=== PATIENT | male | born 1960 | race Caucasian/White ===

== ENCOUNTER 2017-07-21 14:21 | Emergency (ER) | payer MEDICARE, MEDICAID ==
[2014-01-29 08:22] VITALS: Ht 175.3 cm; Wt 102.1 kg
[~2017-07-21] VITALS: Ht 175.3 cm; Wt 102.1 kg
[~2017-07-21 14:21] MED LIST: ACET-1748 PO; ALPR-1 PO; ALPR-699 PO; ANDROGELPT; ANTI HTN; AUG500 PO; BENZ1 PO; CEPH500C24; CHLO100T2 PO; CHLO50TA PO; CHOL500045 PO; CIPR-344; CLON-298 PO; CLON-303 *; DAR100 PO; DES100PT PO; DESV50TA9 PO; FAMO40TA62 PO; FENO145T PO; FLUT16SP20 NS; GEN20I IM; HYDR-4228 PO; HYDR-6016 PO; IBUP800T37 PO; IMMU10VI4 SQ; IMMU4VIA SQ; KETO5DRO50 OP; LEVO-85 PO; LEVO50TA86 PO; LISI-347 PO; LISI-351 PO; LOR5/325 PO; LURA60TA PO; MECO10002 SL; MEPE50TA29 PO; MULT-1335 PO; MULT-859 PO; NORT50CA40 PO; NORT75CA PO; OLAN10TA23 PO; OMEG-97 PO; OMEG500C7 PO; ONDA4TAB PO; QUET400T11 PO; TEST2.5G TD; TOBROD OP; VALS1TAB96 PO; ZOL5 PO
[2017-07-21] MEDS ORDERED: MELA10TA2 PO (15:14)
[2017-07-21] MEDS ORDERED: NOR25 PO (15:14)
[2017-07-21] MEDS ORDERED: ICOS1CAP PO (15:14)
[2017-07-21] MEDS ORDERED: CHLO50TA PO (15:14)
[2017-07-21 15:15] LABS: PLATELET COUNT, AUTOMATED 388 K/uL (150-450)
--- NOTE | 2017-07-21 15:30 | ER Report ---
History and Physical Time Seen By MD: 14:40 Hx. of Stated Complaint: ANXIETY - DENIES SI HPI/ROS CHIEF COMPLAINT: Anxiety HISTORY OF PRESENT ILLNESS: Patient is a 56-year-old male who presents the ED with complaint of anxiety that has worsened over the past 3 weeks. He states that he was seen 1-2 weeks ago in the emergency room and was considered alprazolam. He states he did take some of this but has not been taking much of it. He states that it did help some. He states that he has been diagnosed with anxiety and dysthymia in the past. He does see Shantell Gavin for his psychiatrist. He states he has not seen her for the past 2 months. He states he did make an appointment with her. He states that he has been unable to get hold of her in the past week and decided to text Dr. Heart, psychiatrist, who was his previous psychiatrist and advised him to come to the emergency room for evaluation. He denies any suicidal ideation or homicidal ideation. He denies any new stressors. He states that the short days have been bothering him. He states he just worries about everything currently. REVIEW OF SYSTEMS: Constitutional: No fever, no chills. Eyes: No discharge. ENT: No sore throat. Cardiovascular: No chest pain, no palpitations. Respiratory: No cough, no shortness of breath. Gastrointestinal: No abdominal pain, no vomiting. Genitourinary: No hematuria. Musculoskeletal: No back pain. Skin: No rashes. Neurological: No headache. Allergies: Coded Allergies: codeine (Verified Allergy, Mild, 07/21/17) diazepam (Verified Allergy, Mild, 07/21/17) morphine (Verified Allergy, Mild, ANAPHALAXIS, 07/21/17) tramadol (Verified Allergy, Mild, 07/21/17) ciprofloxacin (Verified Allergy, Unknown, 07/21/17) clarithromycin (Verified Allergy, Unknown, 07/21/17) prednisone (Verified Allergy, Unknown, DELUSIONS, 07/21/17) "STERIOD INDUCED TY" Home Meds Active Scripts Alprazolam 0.25 Mg Tab (XANAX 0.25 MG TAB) 0.25 Mg Tablet, 0.5 TAB PO TID, #6 TAB 0 Refills Prov:ASIA JAEGER MD 07/15/17 Reported Medications Nortriptyline Hcl (NORTRIPTYLINE HCL) 25 Mg Cap, 100 MG PO HS, CAP 07/21/17 Icosapent Ethyl (VASCEPA) 1 Gm Capsule, 2 GM PO BID, CAPSULE 07/21/17 Melatonin (MELATONIN) 10 Mg Tablet, 10 MG PO QHS 07/21/17 Chlorpromazine Hcl (CHLORPROMAZINE HCL) 50 Mg Tablet, 50 MG PO QHS 07/21/17 Fenofibrate Nanocrystallized (FENOFIBRATE) 145 Mg Tablet, 145 MG PO QDAY 04/04/17 Mecobalamin (B-12) 1,000 Mcg Tab.rapdis, 1 TAB SL QDAY 12/25/15 Quetiapine Fumarate (SEROQUEL) 400 Mg Tablet, 1000 MG PO QHS 09/06/14 Immune Globulin,Gamma(Igg) (HIZENTRA) 4 Gm/20 Ml Vial, 50 GM SQ QWEEK, VIAL 09/06/14 Lisinopril/Hydrochlorothiazide (LISINOPRIL-HCTZ 10-12.5 MG TAB) 1 Each Tablet, 1 EACH PO QDAY 09/06/14 Cholecalciferol (Vitamin D3) (VITAMIN D) 5,000 Unit Tablet, 5000 UNIT PO QDAY 01/26/14 Levothyroxine Sodium (LEVOTHYROXINE SODIUM) 50 Mcg Tablet, 50 MCG PO QDAY 12/15/13 Discontinued Reported Medications [place]-3 Fatty Acids (FISH OIL) 500 Mg Capsule, 2 TAB PO BID, CAPSULE 12/25/15 Nortriptyline Hcl (NORTRIPTYLINE HCL) 75 Mg Capsule, 100 MG PO QAM, CAPSULE 12/25/15 TESTOSTERONE 1% Topical Gel (ANDROGEL 1% Topical Gel) 5 Gm Gel, 10 G DAILY 09/06/14 Reviewed Nurses Notes: Yes Old Medical Records Reviewed: Yes Hx Smoking: No Smoking Status: Never Smoker Exposure to Second Hand Smoke?: No Hx Substance Use Disorder: Yes (MARIJUANA) Hx Alcohol Use: No Constitutional Vital Sign - Last 24 Hours 07/21/17 15:00 Temp 98.2 Pulse 100 Resp 16 B/P (MAP) 122/78 Pulse Ox 96 O2 Delivery Room Air Physical Exam General Appearance: The patient is alert, has no immediate need for airway protection and no signs of toxicity. She appears to be no acute distress. Eyes: Pupils equal and round no pallor or injection. ENT, Mouth: Mucous membranes are moist. Respiratory: There are no retractions, lungs are clear to auscultation. Cardiovascular: Regular rate and rhythm. Gastrointestinal: Abdomen is soft and non tender, no masses, bowel sounds normal. Skin: Warm and dry, no rashes. Musculoskeletal: Neck is supple non tender. Extremities are nontender, nonswollen and have full range of motion. Medical Decision Making Data Points Result Diagram: 07/21/17 1502 07/21/17 1502 Laboratory Hematology Test 07/21/17 14:59 07/21/17 15:02 Urine Color Yellow Urine Clarity Clear Urine pH 6.0 pH (4.8-9.5) Urine Specific [place] 1.013 Urine Protein Negative mg/dL (NEGATIVE) Urine Glucose (UA) Negative mg/dL (NEGATIVE) Urine Ketones Negative mg/dL (NEGATIVE) Urine Blood Negative (NEGATIVE) Urine Nitrite Negative (NEGATIVE) Urine Bilirubin Negative (NEGATIVE) Urine Urobilinogen Negative mg/dL (0.2-1.9) Urine Leukocyte Esterase Negative (NEGATIVE) Urine RBC 1 /HPF (0-2/HPF) Urine WBC 1 /HPF (0-5/HPF) Urine Squamous Epithelial Cells Many /LPF (</=FEW) Urine Bacteria Negative /HPF (NONE-FEW) Urine Mucus None /HPF (NONE-FEW) Urine Opiates Screen Negative Urine Barbiturates Screen Negative Ur Tricyclic Antidepressants Screen Positive Urine Phencyclidine Screen Negative Urine Amphetamines Screen Negative Urine Benzodiazepines Screen Negative Urine Cocaine Screen Negative Urine Cannabinoids Screen Positive Red Blood Count 5.49 M/uL (4.00-5.60) Mean Corpuscular Volume 86.2 fL (80.0-96.0) Mean Corpuscular Hemoglobin 30.1 pg (26.0-33.0) Mean Corpuscular Hemoglobin Concent 34.9 g/dL (32.0-36.0) Red Cell Distribution Width 12.8 % (11.5-14.5) Mean Platelet Volume 6.7 fL (7.2-11.1) Neutrophils (%) (Auto) 73.0 % (39.4-72.5) Lymphocytes (%) (Auto) 19.1 % (17.6-49.6) Monocytes (%) (Auto) 6.4 % (4.1-12.4) Eosinophils (%) (Auto) 0.4 % (0.4-6.7) Basophils (%) (Auto) 1.1 % (0.3-1.4) Nucleated RBC Relative Count (auto) 0.0 /100WBC Neutrophils # (Auto) 5.4 K/uL (2.0-7.4) Lymphocytes # (Auto) 1.4 K/uL (1.3-3.6) Monocytes # (Auto) 0.5 K/uL (0.3-1.0) Eosinophils # (Auto) 0.0 K/uL (0.0-0.5) Basophils # (Auto) 0.1 K/uL (0.0-0.1) Nucleated RBC Absolute Count (auto) 0.00 K/uL Sodium Level 132 mmol/L (137-145) Potassium Level 3.6 mmol/L (3.5-5.0) Chloride Level 94 mmol/L (98-107) Carbon Dioxide Level 27 mmol/L (22-30) Blood Urea Nitrogen 18 mg/dl (9-21) Creatinine 1.30 mg/dl (0.66-1.25) Glomerular Filtration Rate Calc 56.7 Random Glucose 102 mg/dl (75-110) Calcium Level 9.9 mg/dl (8.4-10.2) Magnesium Level 2.1 mg/dl (1.7-2.2) Total Bilirubin 0.7 mg/dl (0.2-1.3) Aspartate Amino Transf (AST/SGOT) 33 U/L (0-35) Alanine Aminotransferase (ALT/SGPT) 47 U/L (0-56) Alkaline Phosphatase 58 U/L (0-126) Total Protein 8.6 gm/dl (6.3-8.2) Albumin 4.6 g/dl (3.5-5.0) Salicylates Level < 10 mg/L Salicylate Last Dose Date unknown Acetaminophen Level < 10 ug/ml Serum Alcohol < 10 mg/dl Chemistry Test 07/21/17 14:59 07/21/17 15:02 Urine Color Yellow Urine Clarity Clear Urine pH 6.0 pH (4.8-9.5) Urine Specific [place] 1.013 Urine Protein Negative mg/dL (NEGATIVE) Urine Glucose (UA) Negative mg/dL (NEGATIVE) Urine Ketones Negative mg/dL (NEGATIVE) Urine Blood Negative (NEGATIVE) Urine Nitrite Negative (NEGATIVE) Urine Bilirubin Negative (NEGATIVE) Urine Urobilinogen Negative mg/dL (0.2-1.9) Urine Leukocyte Esterase Negative (NEGATIVE) Urine RBC 1 /HPF (0-2/HPF) Urine WBC 1 /HPF (0-5/HPF) Urine Squamous Epithelial Cells Many /LPF (</=FEW) Urine Bacteria Negative /HPF (NONE-FEW) Urine Mucus None /HPF (NONE-FEW) Urine Opiates Screen Negative Urine Barbiturates Screen Negative Ur Tricyclic Antidepressants Screen Positive Urine Phencyclidine Screen Negative Urine Amphetamines Screen Negative Urine Benzodiazepines Screen Negative Urine Cocaine Screen Negative Urine Cannabinoids Screen Positive White Blood Count 7.3 k/uL (4.5-11.0) Red Blood Count 5.49 M/uL (4.00-5.60) Hemoglobin 16.5 g/dL (14.0-18.0) Hematocrit 47.3 % (42.0-52.0) Mean Corpuscular Volume 86.2 fL (80.0-96.0) Mean Corpuscular Hemoglobin 30.1 pg (26.0-33.0) Mean Corpuscular Hemoglobin Concent 34.9 g/dL (32.0-36.0) Red Cell Distribution Width 12.8 % (11.5-14.5) Platelet Count 388 K/uL (150-450) Mean Platelet Volume 6.7 fL (7.2-11.1) Neutrophils (%) (Auto) 73.0 % (39.4-72.5) Lymphocytes (%) (Auto) 19.1 % (17.6-49.6) Monocytes (%) (Auto) 6.4 % (4.1-12.4) Eosinophils (%) (Auto) 0.4 % (0.4-6.7) Basophils (%) (Auto) 1.1 % (0.3-1.4) Nucleated RBC Relative Count (auto) 0.0 /100WBC Neutrophils # (Auto) 5.4 K/uL (2.0-7.4) Lymphocytes # (Auto) 1.4 K/uL (1.3-3.6) Monocytes # (Auto) 0.5 K/uL (0.3-1.0) Eosinophils # (Auto) 0.0 K/uL (0.0-0.5) Basophils # (Auto) 0.1 K/uL (0.0-0.1) Nucleated RBC Absolute Count (auto) 0.00 K/uL Glomerular Filtration Rate Calc 56.7 Calcium Level 9.9 mg/dl (8.4-10.2) Magnesium Level 2.1 mg/dl (1.7-2.2) Total Bilirubin 0.7 mg/dl (0.2-1.3) Aspartate Amino Transf (AST/SGOT) 33 U/L (0-35) Alanine Aminotransferase (ALT/SGPT) 47 U/L (0-56) Alkaline Phosphatase 58 U/L (0-126) Total Protein 8.6 gm/dl (6.3-8.2) Albumin 4.6 g/dl (3.5-5.0) Salicylates Level < 10 mg/L Salicylate Last Dose Date unknown Acetaminophen Level < 10 ug/ml Serum Alcohol < 10 mg/dl Toxicology Test 07/21/17 14:59 07/21/17 15:02 Urine Opiates Screen Negative Urine Barbiturates Screen Negative Ur Tricyclic Antidepressants Screen Positive Urine Phencyclidine Screen Negative Urine Amphetamines Screen Negative Urine Benzodiazepines Screen Negative Urine Cocaine Screen Negative Urine Cannabinoids Screen Positive Salicylates Level < 10 mg/L Salicylate Last Dose Date unknown Acetaminophen Level < 10 ug/ml Serum Alcohol < 10 mg/dl Urinalysis Test 07/21/17 14:59 Urine Color Yellow Urine Clarity Clear Urine pH 6.0 pH (4.8-9.5) Urine Specific [place] 1.013 Urine Protein Negative mg/dL (NEGATIVE) Urine Glucose (UA) Negative mg/dL (NEGATIVE) Urine Ketones Negative mg/dL (NEGATIVE) Urine Blood Negative (NEGATIVE) Urine Nitrite Negative (NEGATIVE) Urine Bilirubin Negative (NEGATIVE) Urine Urobilinogen Negative mg/dL (0.2-1.9) Urine Leukocyte Esterase Negative (NEGATIVE) Urine RBC 1 /HPF (0-2/HPF) Urine WBC 1 /HPF (0-5/HPF) Urine Squamous Epithelial Cells Many /LPF (</=FEW) Urine Bacteria Negative /HPF (NONE-FEW) Urine Mucus None /HPF (NONE-FEW) EKG/Imaging EKG Interpretation 12 lead EKG: Rhythm: Normal sinus rhythm, rate [address] segments: No acute ST changes identified. ED Course/Re-evaluation ED Course Will obtain labs. Behavioral health will come see patient. 07/21/2017 4:02:44 pm -discussed patient with Dr. Heart, psychiatry, who will accept patient under his care. Decision to Disposition Date: Jul 21, 2017 Decision to Disposition Time: 16:03 Depart Departure Latest Vital Signs Vital Signs Date Time Temp Pulse Resp B/P (MAP) Pulse Ox O2 Delivery O2 Flow Rate FiO2 07/21/17 15:00 98.2 100 16 122/78 96 Room Air Impression: Primary Impression: Anxiety Condition: Improved Disposition: XFER TO [facility] MD Consult Note: Dr. Heart, Psychiatry VALETNE BAEZA PA-C Jul 21, 2017 15:30
--- NOTE | 2017-07-21 16:03 | EKG ---
FACILITY: [facility] - [place] PATIENT NAME: AARON POSADAS : [id number] MR: [id number] V: [id number] EXAM DATE: ORDERING PHYSICIAN: VALENTE BAEZA TECHNOLOGIST: MICHEAL Pino Reason : TACHYCARDIA Blood Pressure : / mmHG Vent. Rate : 095 BPM Atrial Rate : 095 BPM P-R Int : 182 ms QRS Dur : 110 ms QT Int : 364 ms P-R-T Axes : 055 -64 048 degrees QTc Int : 457 ms Normal sinus rhythm Left axis deviation Possible biatrial enlargement No ST-T abnormalities When compared with ECG of 24-FEB-2017 09:58, QRS duration has decreased Confirmed by CHANDNI PAYNE ([id number]) on 07/22/2017 1:30:43 AM Referred By: FELISHA Confirmed By:CHANDNI PAYNE
[2017-07-21 16:25] VITALS: BP 132/87
[2017-07-21] MEDS ORDERED: TEST1.25 (16:27)
== END 2017-07-21 16:34 ==
LOC: ER 14:21
DX: F41.9 Anxiety disorder, unspecified (principal); F12.90 Cannabis use, unspecified, uncomplicated
CPT/HCPCS: 36415; 80305; 81001; 83735; 84443; 85025; 93005; 99285; G0480; 80320; 80329; 82040; 82247; 82310; 82374; 82435; 82565; 82947; 84075; 84132; 84155; 84295; 84450; 84460; 84520

== ENCOUNTER 2017-07-21 16:13 | Inpatient (IN) | payer MEDICARE, MEDICAID ==
[2014-01-29 08:22] VITALS: Ht 175.3 cm; Wt 99.8 kg
[~2017-07-21] VITALS: Ht 175.3 cm; Wt 99.8 kg
[~2017-07-21 16:13] MED LIST changes: +ICOS1CAP PO; +MELA10TA2 PO; +NOR25 PO
[2017-07-21] MEDS ORDERED: TEST1.25 (16:27)
[2017-07-21] MEDS ORDERED: PERPHENAZINE 2 MG TAB PO PRN (18:45)
[2017-07-21] MEDS ORDERED: MAG HYD/AL HYD/SIMETH 30ML UDC PO PRN (19:45)
[2017-07-21] MEDS ORDERED: ACETAMINOPHEN 325 MG TAB PO PRN (19:45)
[2017-07-21] MEDS: ICOSAPENT ETHYL 1 GM PO SCH (20:44)
[2017-07-21] MEDS: MELATONIN 3 MG TAB PO SCH (20:45)
[2017-07-21] MEDS: QUEtiapine FUM 100 MG TAB PO SCH (20:45)
[2017-07-21] MEDS: PERPHENAZINE 2 MG TAB PO SCH (20:47)
[2017-07-21 23:19] VITALS: BP 114/73
[2017-07-22] MEDS: PERPHENAZINE 2 MG TAB PO SCH (00:35)
[2017-07-22] MEDS ORDERED: LORazepam 1 MG TAB PO ONE (02:05)
[2017-07-22] MEDS: LEVOTHYROXINE SOD 0.05 MG TAB PO SCH (06:16)
[2017-07-22 08:14] VITALS: BP 125/74
[2017-07-22] MEDS: ICOSAPENT ETHYL 1 GM PO SCH ×2 (08:14→21:06)
[2017-07-22] MEDS: CHOLECALCIFEROL 1000 UNIT TAB PO SCH (08:15)
[2017-07-22] MEDS: NORTRIPTYLINE HCL 25 MG CAP PO SCH (08:15)
[2017-07-22] MEDS: MULTIVITAMINS TAB PO SCH (08:15)
[2017-07-22] MEDS: FENOFIBRATE,MICRON 145 MG TAB PO SCH (08:15)
[2017-07-22] MEDS: LISINOPRIL 10 MG TAB PO SCH (08:15)
[2017-07-22] MEDS: HYDROCHLOROTHIAZIDE 25 MG TAB PO SCH (08:16)
[2017-07-22] MEDS ORDERED: TESTOSTERONE PUMP TP SCH (09:00)
[2017-07-22] MEDS ORDERED: PATIENT'S OWN MED SC SCH (09:55)
[2017-07-22 17:32] VITALS: BP 119/80
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
[2017-07-22] MEDS ORDERED: PATIENT'S OWN MED SCH (21:00)
[2017-07-22] MEDS ORDERED: PERPHENAZINE 2 MG TAB PO SCH (21:00)
[2017-07-22] MEDS: QUEtiapine FUM 100 MG TAB PO SCH (21:05)
[2017-07-22] MEDS: MELATONIN 3 MG TAB PO SCH (21:05)
[2017-07-23] MEDS ORDERED: PERPHENAZINE 2 MG TAB PO SCH
[2017-07-23 00:16] VITALS: BP 123/87
[2017-07-23] MEDS: LEVOTHYROXINE SOD 0.05 MG TAB PO SCH (07:19)
[2017-07-23 08:10] VITALS: BP 117/76
[2017-07-23] MEDS: CHOLECALCIFEROL 1000 UNIT TAB PO SCH (08:56)
[2017-07-23] MEDS: NORTRIPTYLINE HCL 25 MG CAP PO SCH (08:56)
[2017-07-23] MEDS: FENOFIBRATE,MICRON 145 MG TAB PO SCH (08:56)
[2017-07-23] MEDS: MULTIVITAMINS TAB PO SCH (08:56)
[2017-07-23] MEDS: LISINOPRIL 10 MG TAB PO SCH (08:56)
[2017-07-23] MEDS: HYDROCHLOROTHIAZIDE 25 MG TAB PO SCH (08:57)
[2017-07-23] MEDS: ICOSAPENT ETHYL 1 GM PO SCH (09:00)
[2017-07-23] MEDS ORDERED: PATIENT'S OWN MED SC SCH (09:00)
[2017-07-23] MEDS ORDERED: CYANOCOBALAMIN 100 MCG TAB PO ONE (09:00)
[2017-07-23] MEDS ORDERED: MULT-1335 PO (09:51)
[2017-07-23] MEDS ORDERED: QUET400T11 PO (09:51)
[2017-07-23] MEDS ORDERED: PERP8TAB PO (09:53)
--- NOTE | 2017-07-23 13:03 | BHS Discharge Summary ---
[facility] Discharge Summary [id number] Encounter Date: Jul 23, 2017 [id number] Encounter Time: 09:00 Reason-Hosp/Final Diag (DSM-V): (1) Bipolar disorder, manic, moderate Hospital Course & Plan: Pt. was admitted to [facility] voluntarily. Medication changes were made to address his significant insomnia and anxiety: Trilafon 4 mg was started at HS, and chlorpromazine was DC'd, and seroquel was decreased to 800 mg q HS. After one night the trilafon 4 mg helped him some, but not completely, so the next night it was increased to 8mg. With this dose he reported sleeping well, and anxiety was decreased. On day of discharge he was improved and was cautiously optimistic that the trilafon would continue to benefit him. He was advised to talk to Shantell Gavin, his outpatient provider, about possible depakote trial in the future for mood stability if the trilafon does not give satisfactory benefit. (2) Generalized anxiety disorder Hospital Course & Plan: As above. (3) Elevated sed rate Hospital Course & Plan: Pt's sed rate was measured at 37 during an ER visit one week prior to this admission. In addition, pt's creatinine was elevated at 1.3. Our concern is that there may be an autoimmune process like lupus going on which may also partially explain presenting symptoms like wt loss, malaise, anxiety, polydipsia. (Pt's sister apparently has Lupus) CORRINA was drawn but result is still pending at the time of discharge. Pt understands to make appointment with Suad Yu for follow up of CORRINA result. Of note, patient' s TSH, T3, and T4 were all WNL during this hospitalization. (4) Cannabis use disorder, mild, abuse Hospital Course & Plan: Pt participated in psychoeducation regarding negative effects of cannabis and verbalizes commitment to sobriety. Physical Exam Latest Vital Signs Vital Signs 07/23/17 08:10 Temp 96.9 Pulse 92 Resp 18 B/P (MAP) 117/76 (90) Pulse Ox 96 O2 Delivery Room Air Mental Status Exam General Appearance: Casual, Well Groomed, Good Eye Contact, Cooperative, Polite , Good Interaction Speech: Clear, Spontaneous, Normal Rate, Normal Rhythm, Normal Volume, Normal Tone Mood: Euthymic Affect: Full and Appropriate, Calm Thought Process: Organized, Logical, Goal Directed Thought Content: No Suicidal Ideation, No Homicidal Ideation, No Delusions, No Auditory Halllucinations, No Visual Hallucinations, No Thought Broadcasting, No Ideas of Reference, No Obsessions, No Compulsions, No Other Sensorium: Clear Cognition: Alert & Oriented-Person, Alert & Oriented-Place, Alert & Oriented- Time, Ydbrp-[id number]-Dvzugidlo Memory: Immediate, Recent, Remote Intelligence: Above Average Insight Judgment: Good Departure Hematology Test 07/22/17 11:27 07/23/17 07:17 C-Reactive Protein < 0.5 mg/dl (<1.0) Prostate Specific Antigen 3.71 ng/ml (0.0-4.0) Vitamin D 25-Hydroxy 58 ng/ml (30-100) Free Thyroxine 1.19 ng/dl (0.78-2.19) Free Triiodothyronine 3.0 pg/mL (2.4-4.2) Chemistry Test 07/22/17 11:27 07/23/17 07:17 C-Reactive Protein < 0.5 mg/dl (<1.0) Prostate Specific Antigen 3.71 ng/ml (0.0-4.0) Vitamin D 25-Hydroxy 58 ng/ml (30-100) Free Thyroxine 1.19 ng/dl (0.78-2.19) Free Triiodothyronine 3.0 pg/mL (2.4-4.2) Condition: Improved Discharge to: Home Discharge Instructions Home Meds Reported Medications Perphenazine (PERPHENAZINE) 8 Mg Tablet, 8 MG PO QHS 07/23/17 Multivitamin With Minerals (MULTIPLE VITAMIN) 1 Each Tablet, 1 EACH PO DAILY, TAB 07/23/17 Quetiapine Fumarate (SEROQUEL) 400 Mg Tablet, 800 MG PO QHS 07/23/17 TESTOSTERONE 1.62% Topical Gel (ANDROGEL 1.62% Topical Gel) 1.25 Gm Gel.packet 07/21/17 Nortriptyline Hcl (NORTRIPTYLINE HCL) 25 Mg Cap, 100 MG PO QAM, CAP 07/21/17 Icosapent Ethyl (VASCEPA) 1 Gm Capsule, 2 GM PO BID, CAPSULE 07/21/17 Melatonin (MELATONIN) 10 Mg Tablet, 10 MG PO QHS 07/21/17 Fenofibrate Nanocrystallized (FENOFIBRATE) 145 Mg Tablet, 145 MG PO QDAY 04/04/17 Mecobalamin (B-12) 1,000 Mcg Tab.rapdis, 1 TAB SL QDAY 12/25/15 Immune Globulin,Gamma(Igg) (HIZENTRA) 4 Gm/20 Ml Vial, 50 GM SQ QWEEK, VIAL 09/06/14 Lisinopril/Hydrochlorothiazide (LISINOPRIL-HCTZ 10-12.5 MG TAB) 1 Each Tablet, 1 EACH PO QDAY 09/06/14 Cholecalciferol (Vitamin D3) (VITAMIN D) 5,000 Unit Tablet, 4000 UNIT PO QDAY 01/26/14 Levothyroxine Sodium (LEVOTHYROXINE SODIUM) 50 Mcg Tablet, 50 MCG PO QDAY 12/15/13 Discontinued Reported Medications Chlorpromazine Hcl (CHLORPROMAZINE HCL) 50 Mg Tablet, 50 MG PO QHS 07/21/17 Quetiapine Fumarate (SEROQUEL) 400 Mg Tablet, 1000 MG PO QHS 09/06/14 [place]-3 Fatty Acids (FISH OIL) 500 Mg Capsule, 2 TAB PO BID, CAPSULE 12/25/15 Nortriptyline Hcl (NORTRIPTYLINE HCL) 75 Mg Capsule, 100 MG PO QAM, CAPSULE 12/25/15 TESTOSTERONE 1% Topical Gel (ANDROGEL 1% Topical Gel) 5 Gm Gel, 10 G DAILY 09/06/14 Discontinued Scripts Alprazolam 0.25 Mg Tab (XANAX 0.25 MG TAB) 0.25 Mg Tablet, 0.5 TAB PO TID, #6 TAB 0 Refills Prov:ASIA JAEGER MD 07/15/17 Diet: Regular Activity: As Tolerated Special Instructions: Discharge home. Follow up with outpatient therapy and medication management. Follow up with outpatient provider for labs drawn during hospitalization (CORRINA and testosterone). BOB COSTELLO MD Jul 23, 2017 13:03
== END 2017-07-23 11:40 | disposition home or self-care (01) | DRG 885 ==
LOC: UNDOADMIN 16:13 → BHS 16:13
PROVIDERS: ADMIT Psychiatry & Neurology Psychiatry; ATTEND Psychiatry & Neurology Psychiatry
PROC: 5A09357 Assistance with Respiratory Ventilation, Less than 24 Consecutive Hours, Continuous Positive Airway Pressure (ICD-10-PCS; principal; 2017-07-22)
DX: F31.12 Bipolar disorder, current episode manic without psychotic features, moderate (principal); D80.3 Selective deficiency of immunoglobulin G [IgG] subclasses; F41.1 Generalized anxiety disorder; F12.10 Cannabis abuse, uncomplicated; G89.29 Other chronic pain; I10 Essential (primary) hypertension; G47.30 Sleep apnea, unspecified; Z62.812 Personal history of neglect in childhood; Z91.5 Personal history of self-harm; Z81.1 Family history of alcohol abuse and dependence; Z99.81 Dependence on supplemental oxygen; Z90.49 Acquired absence of other specified parts of digestive tract
CPT/HCPCS: 36415; 80305; 80320; 80329; 81001; 82040; 82247; 82306; 82310; 82374; 82435; 82565; 82947; 83735; 84075; 84132; 84153; 84155; 84295; 84402; 84403; 84439; 84443; 84450; 84460; 84481; 84520; 85025; 86038; 86140; 93005; 99285; Q0175

== ENCOUNTER 2017-09-02 09:59 | Emergency (ER) | payer MEDICARE, MEDICAID ==
[2014-01-29 08:22] VITALS: Ht 175.3 cm; Wt 99.8 kg
[~2017-09-02] VITALS: Ht 175.3 cm; Wt 99.8 kg
[~2017-09-02 09:59] MED LIST changes: +PERP8TAB PO; +TEST1.25
[2017-09-02] MEDS ORDERED: QUET300T18 PO (10:14)
--- NOTE | 2017-09-02 10:21 | ER Report ---
History and Physical Time Seen By MD: 10:21 HPI/ROS CHIEF COMPLAINT: Suicide attempt HISTORY OF PRESENT ILLNESS: 56-year-old male recently discharged from [facility] in [place] for mental health issues including treatment for depression versus bipolar" they couldn't decide which" presents with suicide attempt by overdose states he to 60 one mg tablets of Ativan and 4 PM yesterday in attempt to off his life. He has no complaints at this time. Per [facility] wellness representatives no Radha are present his affect seems flat at this time but also did yesterday before the reported suicide attempt. This is an unwitnessed attempt. He denies flushing the meds down the toilet. He denies medical symptoms at this time. He states he used to be on a tricyclic antidepressant for 10 years but it worked well but they took him off of it. He states he just wants to go home. REVIEW OF SYSTEMS: Constitutional: No fever, no chills. Eyes: No discharge. ENT: No sore throat. Cardiovascular: No chest pain, no palpitations. Respiratory: No cough, no shortness of breath. Gastrointestinal: No abdominal pain, no vomiting. Genitourinary: No hematuria. Musculoskeletal: No back pain. Skin: No rashes. Neurological: No headache. Allergies: Coded Allergies: codeine (Verified Allergy, Mild, 09/02/17) diazepam (Verified Allergy, Mild, 09/02/17) morphine (Verified Allergy, Mild, ANAPHALAXIS, 09/02/17) tramadol (Verified Allergy, Mild, 09/02/17) ciprofloxacin (Verified Allergy, Unknown, 09/02/17) clarithromycin (Verified Allergy, Unknown, 09/02/17) prednisone (Verified Allergy, Unknown, DELUSIONS, 09/02/17) "STERIOD INDUCED TY" Home Meds Reported Medications Quetiapine Fumarate (SEROQUEL) 300 Mg Tablet, 600 MG PO DAILY 09/02/17 Multivitamin With Minerals (MULTIPLE VITAMIN) 1 Each Tablet, 1 EACH PO DAILY, TAB 07/23/17 TESTOSTERONE 1.62% Topical Gel (ANDROGEL 1.62% Topical Gel) 1.25 Gm Gel.packet 07/21/17 Icosapent Ethyl (VASCEPA) 1 Gm Capsule, 2 GM PO BID, CAPSULE 07/21/17 Fenofibrate Nanocrystallized (FENOFIBRATE) 145 Mg Tablet, 145 MG PO QDAY 04/04/17 Mecobalamin (B-12) 1,000 Mcg Tab.rapdis, 1 TAB SL QDAY 12/25/15 Immune Globulin,Gamma(Igg) (HIZENTRA) 4 Gm/20 Ml Vial, 50 GM SQ QWEEK, VIAL 09/06/14 Lisinopril/Hydrochlorothiazide (LISINOPRIL-HCTZ 10-12.5 MG TAB) 1 Each Tablet, 1 EACH PO QDAY 09/06/14 Cholecalciferol (Vitamin D3) (VITAMIN D) 5,000 Unit Tablet, 4000 UNIT PO QDAY 01/26/14 Levothyroxine Sodium (LEVOTHYROXINE SODIUM) 50 Mcg Tablet, 50 MCG PO QDAY 12/15/13 Discontinued Reported Medications Perphenazine (PERPHENAZINE) 8 Mg Tablet, 8 MG PO QHS 07/23/17 Quetiapine Fumarate (SEROQUEL) 400 Mg Tablet, 800 MG PO QHS 07/23/17 Nortriptyline Hcl (NORTRIPTYLINE HCL) 25 Mg Cap, 100 MG PO QAM, CAP 07/21/17 Melatonin (MELATONIN) 10 Mg Tablet, 10 MG PO QHS 07/21/17 Hx Smoking: No Smoking Status: Never Smoker Exposure to Second Hand Smoke?: No Hx Substance Use Disorder: Yes (MARIJUANA) Hx Alcohol Use: No Constitutional Vital Sign - Last 24 Hours 09/02/17 09/02/17 09/02/17 09/02/17 10:15 10:20 10:29 10:30 Temp 98.8 Pulse 93 92 Resp 20 9 B/P (MAP) 111/72 (85) 111/72 112/80 (91) Pulse Ox 94 93 09/02/17 09/02/17 09/02/17 09/02/17 10:44 11:00 11:29 11:30 Pulse 86 85 Resp 10 17 B/P (MAP) 112/73 (86) 112/80 (91) 09/02/17 09/02/17 09/02/17 09/02/17 11:44 12:00 12:04 12:30 Pulse 92 87 Resp 21 23 B/P (MAP) 113/79 (90) 109/85 (93) 09/02/17 09/02/17 09/02/17 09/02/17 12:49 13:00 13:19 13:30 Pulse 92 94 Resp 22 18 B/P (MAP) 122/81 (95) 115/83 (94) 09/02/17 09/02/17 13:34 13:54 Pulse 94 98 Resp 16 25 Physical Exam General Appearance: The patient is alert, has no immediate need for airway protection and no signs of toxicity. He is in no acute distress and appears comfortable Eyes: Pupils equal and round no pallor or injection. ENT, Mouth: Mucous membranes are moist. Normal oropharynx Respiratory: There are no retractions, lungs are clear to auscultation. Cardiovascular: Regular rate and rhythm. No murmurs gallops or rubs Gastrointestinal: Abdomen is soft and non tender, no masses, bowel sounds normal. Neurological: Normal exam Skin: Warm and dry, no rashes. Musculoskeletal: Neck is supple non tender. Extremities are nontender, nonswollen and have full range of motion. Psychiatric exam no signs of responding to internal stimuli no tangential speech and no pressured speech. His affect is flat and his hypophonic and slow to respond. He appears depressed. DIFFERENTIAL DIAGNOSIS: After history and physical exam differential diagnosis was considered for depression, suicide attempt, suicidal gesture, attention seeking behavior, secondary gain, axis II disorder unspecified. Medical Decision Making Data Points Result Diagram: 09/02/17 1040 09/02/17 1040 Laboratory Hematology Test 09/02/17 10:40 09/02/17 11:50 Red Blood Count 4.84 M/uL (4.00-5.60) Mean Corpuscular Volume 87.6 fL (80.0-96.0) Mean Corpuscular Hemoglobin 30.8 pg (26.0-33.0) Mean Corpuscular Hemoglobin Concent 35.2 g/dL (32.0-36.0) Red Cell Distribution Width 13.5 % (11.5-14.5) Mean Platelet Volume 6.8 fL (7.2-11.1) Neutrophils (%) (Auto) 71.8 % (39.4-72.5) Lymphocytes (%) (Auto) 18.9 % (17.6-49.6) Monocytes (%) (Auto) 7.8 % (4.1-12.4) Eosinophils (%) (Auto) 0.5 % (0.4-6.7) Basophils (%) (Auto) 1.0 % (0.3-1.4) Nucleated RBC Relative Count (auto) 0.0 /100WBC Neutrophils # (Auto) 5.5 K/uL (2.0-7.4) Lymphocytes # (Auto) 1.4 K/uL (1.3-3.6) Monocytes # (Auto) 0.6 K/uL (0.3-1.0) Eosinophils # (Auto) 0.0 K/uL (0.0-0.5) Basophils # (Auto) 0.1 K/uL (0.0-0.1) Nucleated RBC Absolute Count (auto) 0.00 K/uL Sodium Level 137 mmol/L (137-145) Potassium Level 3.7 mmol/L (3.5-5.0) Chloride Level 103 mmol/L (98-107) Carbon Dioxide Level 23 mmol/L (22-30) Blood Urea Nitrogen 17 mg/dl (9-21) Creatinine 0.90 mg/dl (0.66-1.25) Glomerular Filtration Rate Calc > 60.0 Random Glucose 94 mg/dl (75-110) Calcium Level 9.5 mg/dl (8.4-10.2) Total Bilirubin 0.8 mg/dl (0.2-1.3) Aspartate Amino Transf (AST/SGOT) 24 U/L (0-35) Alanine Aminotransferase (ALT/SGPT) 40 U/L (0-56) Alkaline Phosphatase 75 U/L (0-126) Total Protein 7.6 gm/dl (6.3-8.2) Albumin 4.1 g/dl (3.5-5.0) Lipase 46 U/L (23-300) Thyroid Stim Hormone, Ultra Sensitv 2.240 uIU/ml (0.465-4.680) Salicylates Level < 10 mg/L Salicylate Last Dose Date unknown Acetaminophen Level < 10 ug/ml Urine Color Yellow Urine Clarity Clear Urine pH 5.0 pH (4.8-9.5) Urine Specific [place] 1.023 Urine Protein Negative mg/dL (NEGATIVE) Urine Glucose (UA) Negative mg/dL (NEGATIVE) Urine Ketones Negative mg/dL (NEGATIVE) Urine Blood Negative (NEGATIVE) Urine Nitrite Negative (NEGATIVE) Urine Bilirubin Negative (NEGATIVE) Urine Urobilinogen Negative mg/dL (0.2-1.9) Urine Leukocyte Esterase Negative (NEGATIVE) Urine RBC <1 /HPF (0-2/HPF) Urine WBC 1 /HPF (0-5/HPF) Urine Squamous Epithelial Cells Moderate /LPF (</=FEW) Urine Transitional Epithelial Cells Few /LPF (NONE-FEW) Urine Bacteria Negative /HPF (NONE-FEW) Urine Mucus Few /HPF (NONE-FEW) Urine Opiates Screen Negative Urine Barbiturates Screen Negative Ur Tricyclic Antidepressants Screen Negative Urine Phencyclidine Screen Negative Urine Amphetamines Screen Negative Urine Benzodiazepines Screen Positive Urine Cocaine Screen Negative Urine Cannabinoids Screen Positive Chemistry Test 09/02/17 10:40 09/02/17 11:50 White Blood Count 7.6 k/uL (4.5-11.0) Red Blood Count 4.84 M/uL (4.00-5.60) Hemoglobin 14.9 g/dL (14.0-18.0) Hematocrit 42.4 % (42.0-52.0) Mean Corpuscular Volume 87.6 fL (80.0-96.0) Mean Corpuscular Hemoglobin 30.8 pg (26.0-33.0) Mean Corpuscular Hemoglobin Concent 35.2 g/dL (32.0-36.0) Red Cell Distribution Width 13.5 % (11.5-14.5) Platelet Count 377 K/uL (150-450) Mean Platelet Volume 6.8 fL (7.2-11.1) Neutrophils (%) (Auto) 71.8 % (39.4-72.5) Lymphocytes (%) (Auto) 18.9 % (17.6-49.6) Monocytes (%) (Auto) 7.8 % (4.1-12.4) Eosinophils (%) (Auto) 0.5 % (0.4-6.7) Basophils (%) (Auto) 1.0 % (0.3-1.4) Nucleated RBC Relative Count (auto) 0.0 /100WBC Neutrophils # (Auto) 5.5 K/uL (2.0-7.4) Lymphocytes # (Auto) 1.4 K/uL (1.3-3.6) Monocytes # (Auto) 0.6 K/uL (0.3-1.0) Eosinophils # (Auto) 0.0 K/uL (0.0-0.5) Basophils # (Auto) 0.1 K/uL (0.0-0.1) Nucleated RBC Absolute Count (auto) 0.00 K/uL Glomerular Filtration Rate Calc > 60.0 Calcium Level 9.5 mg/dl (8.4-10.2) Total Bilirubin 0.8 mg/dl (0.2-1.3) Aspartate Amino Transf (AST/SGOT) 24 U/L (0-35) Alanine Aminotransferase (ALT/SGPT) 40 U/L (0-56) Alkaline Phosphatase 75 U/L (0-126) Total Protein 7.6 gm/dl (6.3-8.2) Albumin 4.1 g/dl (3.5-5.0) Lipase 46 U/L (23-300) Thyroid Stim Hormone, Ultra Sensitv 2.240 uIU/ml (0.465-4.680) Salicylates Level < 10 mg/L Salicylate Last Dose Date unknown Acetaminophen Level < 10 ug/ml Urine Color Yellow Urine Clarity Clear Urine pH 5.0 pH (4.8-9.5) Urine Specific [place] 1.023 Urine Protein Negative mg/dL (NEGATIVE) Urine Glucose (UA) Negative mg/dL (NEGATIVE) Urine Ketones Negative mg/dL (NEGATIVE) Urine Blood Negative (NEGATIVE) Urine Nitrite Negative (NEGATIVE) Urine Bilirubin Negative (NEGATIVE) Urine Urobilinogen Negative mg/dL (0.2-1.9) Urine Leukocyte Esterase Negative (NEGATIVE) Urine RBC <1 /HPF (0-2/HPF) Urine WBC 1 /HPF (0-5/HPF) Urine Squamous Epithelial Cells Moderate /LPF (</=FEW) Urine Transitional Epithelial Cells Few /LPF (NONE-FEW) Urine Bacteria Negative /HPF (NONE-FEW) Urine Mucus Few /HPF (NONE-FEW) Urine Opiates Screen Negative Urine Barbiturates Screen Negative Ur Tricyclic Antidepressants Screen Negative Urine Phencyclidine Screen Negative Urine Amphetamines Screen Negative Urine Benzodiazepines Screen Positive Urine Cocaine Screen Negative Urine Cannabinoids Screen Positive Toxicology Test 09/02/17 10:40 09/02/17 11:50 Salicylates Level < 10 mg/L Salicylate Last Dose Date unknown Acetaminophen Level < 10 ug/ml Urine Opiates Screen Negative Urine Barbiturates Screen Negative Ur Tricyclic Antidepressants Screen Negative Urine Phencyclidine Screen Negative Urine Amphetamines Screen Negative Urine Benzodiazepines Screen Positive Urine Cocaine Screen Negative Urine Cannabinoids Screen Positive Urinalysis Test 09/02/17 11:50 Urine Color Yellow Urine Clarity Clear Urine pH 5.0 pH (4.8-9.5) Urine Specific [place] 1.023 Urine Protein Negative mg/dL (NEGATIVE) Urine Glucose (UA) Negative mg/dL (NEGATIVE) Urine Ketones Negative mg/dL (NEGATIVE) Urine Blood Negative (NEGATIVE) Urine Nitrite Negative (NEGATIVE) Urine Bilirubin Negative (NEGATIVE) Urine Urobilinogen Negative mg/dL (0.2-1.9) Urine Leukocyte Esterase Negative (NEGATIVE) Urine RBC <1 /HPF (0-2/HPF) Urine WBC 1 /HPF (0-5/HPF) Urine Squamous Epithelial Cells Moderate /LPF (</=FEW) Urine Transitional Epithelial Cells Few /LPF (NONE-FEW) Urine Bacteria Negative /HPF (NONE-FEW) Urine Mucus Few /HPF (NONE-FEW) ED Course/Re-evaluation ED Course Case discussed with Dr. Heart after labs returned and reviewed; recommends ED observation until 1600 and then will accept. 1600 Pt re-eval; vital stable no signs of decompensation. REfusing food at this time. Depressed affect. 1609 case discussed with Elizabeth Padgett who accepts. Decision to Disposition Date: Sep 02, 2017 Decision to Disposition Time: 16:10 Depart Departure Latest Vital Signs Vital Signs Date Time Temp Pulse Resp B/P (MAP) Pulse Ox O2 Delivery O2 Flow Rate FiO2 09/02/17 13:54 98 25 09/02/17 13:30 115/83 (94) 09/02/17 10:29 93 09/02/17 10:20 98.8 Impression: Primary Impression: Depression Additional Impression: Depression with suicidal ideation Condition: Condition Unchanged Disposition: Admitted from ER Problem Qualifiers Primary Impression: Depression Major depression recurrence: recurrent Active/Remission status: currently active Major depression episode severity: severe JEANIE PHELPS MD Sep 02, 2017 10:21
[2017-09-02 10:53] LABS: PLATELET COUNT, AUTOMATED 377 K/uL (150-450)
[2017-09-02 16:00] VITALS: BP 120/80
== END 2017-09-02 16:45 | disposition other institution (70) ==
LOC: ER 10:01
DX: F32.9 Major depressive disorder, single episode, unspecified (principal); R45.851 Suicidal ideations
CPT/HCPCS: 80305; 81001; 83690; 84443; 85025; 99284; G0480; 80329; 82040; 82247; 82310; 82374; 82435; 82565; 82947; 84075; 84132; 84155; 84295; 84450; 84460; 84520

== ENCOUNTER 2017-09-02 16:10 | Inpatient (IN) | payer MEDICARE, MEDICAID ==
[2014-01-29 08:22] VITALS: Ht 177.8 cm; Wt 86.2 kg
[~2017-09-02] VITALS: Ht 177.8 cm; Wt 86.2 kg
[~2017-09-02 16:10] MED LIST changes: +QUET300T18 PO
[2017-09-02] MEDS ORDERED: LOPERAMIDE HCL 2 MG CAP PO PRN (18:00)
[2017-09-02] MEDS ORDERED: LOPERAMIDE HCL 2 MG CAP PO ONE (18:00)
[2017-09-02 18:18] VITALS: BP 108/68
--- NOTE | 2017-09-02 19:08 | BHS - Psychiatric Evaluation ---
ER - Title 25 MHE Evaluation Title 25 Evaluation Patient Detained By: Physician (Dr. Berry) Referral Source: Professional: Dr. Berry Date Patient Detained: Sep 02, 2017 Time Patient Detained: 16:00 Date Usp Expires: Sep 07, 2017 Time Usp Expires: 16:00 Legal Status: Police Hold: No Legal Status: Residence: [facility] Resident, State Resident Assessment Data Provided By: Patient, Other Source ([facility]LY [facility] ER Physician, Er nurse , and [facility] Professional staff, Patient's Electronic Medical record (EMR)) HPI/ROS: Per ER Doctor, Dr. Berry, "56-year-old male recently discharged from [facility] in [place] for mental health issues including treatment for depression versus bipolar " they couldn't decide which" presents with suicide attempt by overdose states he to 60 one mg tablets of Ativan and 4 PM yesterday in attempt to off his life. He has no complaints at this time. His affect seems flat at this time but also did yesterday before the reported suicide attempt. This is an unwitnessed attempt. He denies flushing the meds down the toilet. He denies medical symptoms at this time. He states he used to be on a tricyclic antidepressant for 10 years but it worked well but they took him off of it. He states he just wants to go home. Admit due to SI or Attempt: Yes Suicide Plan: Has Plan w/out Access Current Suicide Plan Patient denies suicidality, says to this reportor, that he was trying to go to sleep, not take his life. Alcohol or Drugs Involved: Yes (Patient says he has not smoked marijuana since June, and notes it is concerning that he continues to test positive.) Is Patient Info Reliable: Yes Is Collateral Info Reliable: Yes Current Home Psych Meds: Seroquil, Ativan Mental Status Exam General Appearance: Casual, Good Eye Contact, Cooperative, Good Interaction Speech: Clear, Spontaneous, No Normal Rate (slightly slowed, patient says he feels "shut down."), Normal Rhythm Mood: Dysthmic/Depressed Affect: Sad, Tearful (Patient comes to close to crying especially when he describes missing his pet dog.) Thought Process: Organized, Logical, Goal Directed Thought Content: Suicidal Ideation (Denies) Sensorium: Clear Cognition: Alert & Oriented-Person, Alert & Oriented-Place, Alert & Oriented- Time, [id number] Memory: Immediate, Recent, Remote Insight Judgment: Poor Sleep: Insomnia Hallucinations: Denies Delusions: Denies Current Risk & History Current Dangerous Risk Assessm: Current Suicide Ideation (Denies) Past Dangerous Risk Assessm: Suicide Ideation-last 6mo Previous Suicide Attempt: Past - Low Lethality Previous Psychiatric Illness: Yes (Anxiety) Previous Diagnosis/Treatment: Bipolar disorder unspecified. Generalized anxiety disorder. Cannabis use disorder mild. Rule out mood disorder secondary to autoimmune endocrine disorder. Previous Psychiatric Treatment: Yes Previous Treatment Description Most recently patient has been treated in [place]. He says his stay at [facility] was not helpful. Risk Assessment & Disposition Evaluated Risk Assessment: Risk assessment is high based on patient decompensation. He reports to this examiner insomnia, depression, and fear he has "ruined his life." These mood states together with an attempt on his life are quite concerning and a safe and structured environment to help him stabilize are indicated. Impression: Primary Impression: Depression with suicidal ideation Additional Impressions: Anxiety Bipolar disorder, manic, moderate Meets Mental Illness Req.: Yes Meets Dangerousness Req.: Yes Emergency Usp to be: Upheld Decision Comment: Risk assessment is high based on patient decompensation. He reports to this examiner insomnia, depression, and fear he has "ruined his life." These mood states together with an attempt on his life are quite concerning and a safe and structured environment to help him stabilize are indicated Date of Decision: Sep 02, 2017 Time of Decision: 19:07 Patient is Medically Stable at: Yes Disposition: [facility] Problem Qualifiers PERLA ROQUE LPC Sep 02, 2017 19:08
[2017-09-02] MEDS: CARBAMIDE PEROX 6.5% OT SOLN EACH EAR SCH (21:16)
[2017-09-02 22:54] VITALS: BP 124/74
[2017-09-03 06:25] VITALS: BP 112/70
[2017-09-03] MEDS: MULTIVITAMINS TAB PO SCH (08:21)
[2017-09-03] MEDS: CARBAMIDE PEROX 6.5% OT SOLN EACH EAR SCH ×2 (08:21→21:00)
[2017-09-03 11:05] VITALS: BP 119/80
[2017-09-03 15:46] VITALS: BP 107/67
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
[2017-09-03] MEDS: MIRTAZAPINE 15 MG TAB PO SCH (20:22)
[2017-09-03 20:23] VITALS: BP 119/88
[2017-09-03] MEDS ORDERED: QUEtiapine FUM 100 MG TAB PO SCH (21:00)
[2017-09-04 05:43] VITALS: BP 110/68
[2017-09-04 08:30] VITALS: BP 123/71
[2017-09-04] MEDS: MULTIVITAMINS TAB PO SCH (08:31)
[2017-09-04] MEDS: CARBAMIDE PEROX 6.5% OT SOLN EACH EAR SCH ×2 (09:00→20:17)
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
[2017-09-04] MEDS: MIRTAZAPINE 15 MG TAB PO SCH (20:15)
[2017-09-04 20:17] VITALS: BP 131/82
[2017-09-04] MEDS ORDERED: QUEtiapine FUM 100 MG TAB PO SCH (21:00)
[2017-09-05 05:22] VITALS: BP 107/77
[2017-09-05] MEDS ORDERED: LEVOTHYROXINE SOD 0.05 MG TAB PO SCH (06:00)
[2017-09-05] MEDS: CARBAMIDE PEROX 6.5% OT SOLN EACH EAR SCH (08:12)
[2017-09-05] MEDS: MULTIVITAMINS TAB PO SCH (08:16)
[2017-09-05] MEDS: TAMSULOSIN HCL 0.4 MG CAP PO SCH (08:16)
[2017-09-05] MEDS: LISINOPRIL 10 MG TAB PO SCH (08:18)
[2017-09-05] MEDS ORDERED: HYDROCHLOROTHIAZIDE 25 MG TAB PO ONE (09:00)
[2017-09-05 11:18] VITALS: BP 110/68
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
[2017-09-05] MEDS: DOCUSATE SODIUM 100 MG CAP PO SCH (21:00)
[2017-09-05] MEDS: MIRTAZAPINE 15 MG TAB PO SCH (21:00)
[2017-09-05] MEDS: QUEtiapine FUM 100 MG TAB PO SCH (21:02)
[2017-09-06] MEDS: DOCUSATE SODIUM 100 MG CAP PO SCH ×2 (08:16→21:00)
[2017-09-06] MEDS: TAMSULOSIN HCL 0.4 MG CAP PO SCH (08:19)
[2017-09-06] MEDS: LISINOPRIL 10 MG TAB PO SCH (08:19)
[2017-09-06] MEDS: LEVOTHYROXINE SOD 0.05 MG TAB PO SCH (08:20)
[2017-09-06] MEDS: MULTIVITAMINS TAB PO SCH (08:21)
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
[2017-09-06] MEDS: PATIENT'S OWN MED SC SCH (14:55)
[2017-09-06] MEDS: MIRTAZAPINE 15 MG TAB PO SCH (20:42)
[2017-09-06] MEDS: QUEtiapine FUM 100 MG TAB PO SCH (20:42)
[2017-09-06 21:15] VITALS: BP 118/70
[2017-09-07 05:28] VITALS: BP 100/71
[2017-09-07] MEDS: DOCUSATE SODIUM 100 MG CAP PO SCH ×2 (08:19→21:02)
[2017-09-07] MEDS: TAMSULOSIN HCL 0.4 MG CAP PO SCH (08:19)
[2017-09-07] MEDS: LEVOTHYROXINE SOD 0.05 MG TAB PO SCH (08:19)
[2017-09-07] MEDS: LISINOPRIL 10 MG TAB PO SCH ×2 (08:19→08:22)
[2017-09-07] MEDS: MULTIVITAMINS TAB PO SCH (08:20)
[2017-09-07 08:22] VITALS: BP 88/64
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
[2017-09-07] MEDS ORDERED: QUET400T PO (11:17)
[2017-09-07] MEDS ORDERED: BISACODYL 5 MG TABEC PO ONE (13:05)
[2017-09-07 14:00] VITALS: BP 118/64
[2017-09-07] MEDS: MIRTAZAPINE 15 MG TAB PO SCH (21:00)
[2017-09-07] MEDS: QUEtiapine FUM 100 MG TAB PO SCH (21:02)
[2017-09-08 08:41] VITALS: BP 98/62
[2017-09-08] MEDS: TAMSULOSIN HCL 0.4 MG CAP PO SCH (08:43)
[2017-09-08] MEDS: LEVOTHYROXINE SOD 0.05 MG TAB PO SCH (08:43)
[2017-09-08] MEDS: MULTIVITAMINS TAB PO SCH (08:43)
[2017-09-08] MEDS: DOCUSATE SODIUM 100 MG CAP PO SCH ×2 (08:43→21:15)
[2017-09-08] MEDS: LISINOPRIL 10 MG TAB PO SCH (08:43)
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
[2017-09-08] MEDS: QUEtiapine FUM 100 MG TAB PO SCH (21:15)
[2017-09-08] MEDS: MIRTAZAPINE 15 MG TAB PO SCH (21:15)
[2017-09-08 23:05] VITALS: BP 114/74
[2017-09-09 06:05] VITALS: BP 102/66
[2017-09-09] MEDS: MULTIVITAMINS TAB PO SCH (08:18)
[2017-09-09] MEDS: LISINOPRIL 10 MG TAB PO SCH (08:18)
[2017-09-09] MEDS: DOCUSATE SODIUM 100 MG CAP PO SCH ×2 (08:18→21:08)
[2017-09-09] MEDS: TAMSULOSIN HCL 0.4 MG CAP PO SCH (08:18)
[2017-09-09] MEDS: LEVOTHYROXINE SOD 0.05 MG TAB PO SCH (08:18)
[2017-09-09 13:47] VITALS: BP 109/65
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
[2017-09-09] MEDS ORDERED: LITHIUM CARBONATE 450 MG TABCR PO SCH (21:00)
[2017-09-09] MEDS: MIRTAZAPINE 15 MG TAB PO SCH (21:08)
[2017-09-09] MEDS: QUEtiapine FUM 100 MG TAB PO SCH (21:08)
[2017-09-10 07:52] VITALS: BP 118/76
[2017-09-10] MEDS: MULTIVITAMINS TAB PO SCH (08:10)
[2017-09-10] MEDS: TAMSULOSIN HCL 0.4 MG CAP PO SCH (08:11)
[2017-09-10] MEDS: DOCUSATE SODIUM 100 MG CAP PO SCH ×2 (08:11→20:51)
[2017-09-10] MEDS: LISINOPRIL 10 MG TAB PO SCH (08:11)
[2017-09-10] MEDS: LEVOTHYROXINE SOD 0.05 MG TAB PO SCH (08:12)
[2017-09-10] MEDS ORDERED: SALIVA SUBSTITUTE MM PRN (09:50)
[2017-09-10] MEDS: HYPROMELLOSE 0.4% LUB 15ML BTL OU PRN ×2 (12:29→17:12)
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
[2017-09-10] MEDS: MELATONIN 3 MG TAB PO SCH (20:50)
[2017-09-10] MEDS: MIRTAZAPINE 15 MG TAB PO SCH (20:51)
[2017-09-10] MEDS: QUEtiapine FUM 100 MG TAB PO SCH (20:51)
[2017-09-10] MEDS ORDERED: LITHIUM CARBONATE 300 MG TABCR PO SCH (21:00)
[2017-09-10 22:39] VITALS: BP 112/64
[2017-09-11 07:10] VITALS: BP 118/83
[2017-09-11] MEDS: LISINOPRIL 10 MG TAB PO SCH (08:12)
[2017-09-11] MEDS: MULTIVITAMINS TAB PO SCH (08:19)
[2017-09-11] MEDS: DOCUSATE SODIUM 100 MG CAP PO SCH ×2 (08:19→21:17)
[2017-09-11] MEDS: TAMSULOSIN HCL 0.4 MG CAP PO SCH (08:19)
[2017-09-11] MEDS: LEVOTHYROXINE SOD 0.05 MG TAB PO SCH (08:19)
[2017-09-11] MEDS ORDERED: LORazepam 0.5 MG TAB PO SCH (10:40)
[2017-09-11] MEDS ORDERED: LORazepam 1 MG TAB PO SCH ×2 (11:00→21:00)
[2017-09-11] MEDS ORDERED: LORazepam 1 MG TAB PO ONE (11:10)
[2017-09-11] MEDS: LORazepam 1 MG TAB PO SCH (13:52)
--- NOTE | 2017-09-11 15:27 | BHS Progress Note ---
[facility] - Subjective Progress Notes Subjective Pt seen with team. Reports very poor sleep last night, still very depressed, extremely negative, indecisive, with agitation and anxiety. Paces the halls. Stood for 45 minutes staring at the daily menu, trying to decide what to eat. Somatic preoccupation continues to a near-delusional degree, complaining of lithium being "desicating", having to drink water all day yesterday, worried about his sinuses, about his bowels, his foot pain, his pain all over, dry eyes. Pt is extremely ambivalent about lithium "scared of all the blood tests" , and we confronted him about his help-seeking/help-rejecting patterns. He eventually agreed to proposed med changes: 1. DC remeron since antidepressants can fuel mood instability in bipolar patient. 2. Increase lithium to 900 mg. 3. Start low dose ativan BID, plus 2 mg q HS, rationale is to help with his paralyzing (literally) anxiety during day and to help with sleep. Once this severe mood episode abates-- once lithium has time to fully kick in-- I suspect patient will not need ongoing benzo's. Not my typical practice to restart a med that a patient recently overdosed on, but certainly indicated in this severely ill pt, at least for the time being. Again today we see [id number] bits of improvement: better able to stay on topic, his mouth is less dry today , less complaining about dry mouth/eyes, a little less psychomotor retardation- - gestured spontaneously with his arms. Suicidal Ideation: Resolving (Pt still very hopeless to the degree that he is not safe outside hospital) Homicidal Ideation: None S - Objective Physical Exam Vital Signs Vital Signs 09/11/17 07:10 Temp 98.7 Pulse 76 Resp 16 B/P (MAP) 118/83 (95) Pulse Ox 97 O2 Delivery Bi-PAP Muscle Strength and Tone: WNL Gait and Station: Steady [facility] Medications Reviewed: Side Effects, Benefits of Medication, Risks Allergies Reviewed: Yes Mental Status Exam General Appearance: Casual, Good Eye Contact, Cooperative, Polite, Good Interaction, Psychomotor Retardation Speech: Clear, No Spontaneous, Normal Rate (Slightly slowed ), No Normal Rhythm , Normal Volume, Normal Tone (Lengthy pauses between inquiries and patient's responses, guarded with response), Delayed Mood: Dysthmic/Depressed Affect: Calm, Sad, Withdrawn, No Tearful, Anxious, No Agitated Thought Process: Organized, Logical, Goal Directed, No Loose Associations, No Flight of Ideas Thought Content: Suicidal Ideation (denies SI but so hopeless with passive wishes that I feel he would be at high risk outside of hospital setting), No Homicidal Ideation, No Delusions, No Auditory Halllucinations, No Visual Hallucinations, No Thought Broadcasting, No Ideas of Reference, No Obsessions, No Compulsions Sensorium: Clear Cognition: Alert & Oriented-Person, Alert & Oriented-Place, Alert & Oriented- Time, Xlnts-Xsxlpabg-Ydhtoutjj Memory: No Immediate, Recent, Other Intelligence: Average Insight Judgment: Poor (some improvement, but maladaptive stress coping mechanisms ongoing. ) [facility] Assessment and Plan Vvrr-mr-Smfp Encounter Date: Sep 11, 2017 Xdsg-fi-[id number] Encounter Time: 10:00 [facility] Plan: Admit to Unit, Necessary Precautions, Individual/Group Therapy, Admin /Titrate Meds, Educate Patient Tobacco Medications: Not Appropriate Condition Problems: (1) Suicide attempt by other psychotropic drug overdose (2) Bipolar disorder, mixed Status: Chronic (3) Cannabis use disorder, severe, in controlled environment Status: Chronic BOB COSTELLO MD Sep 11, 2017 15:27
[2017-09-11] MEDS: MAG HYD/AL HYD/SIMETH 30ML UDC PO PRN ×2 (15:48→20:34)
[2017-09-11 17:10] VITALS: BP 124/80
[2017-09-11] MEDS: MELATONIN 3 MG TAB PO SCH (21:18)
[2017-09-11] MEDS: QUEtiapine FUM 100 MG TAB PO SCH (21:18)
[2017-09-11] MEDS: LITHIUM CARBONATE 300 MG TABCR PO SCH (21:18)
[2017-09-12] MEDS: TAMSULOSIN HCL 0.4 MG CAP PO SCH (08:09)
[2017-09-12] MEDS: MULTIVITAMINS TAB PO SCH (08:09)
[2017-09-12] MEDS: LEVOTHYROXINE SOD 0.05 MG TAB PO SCH (08:09)
[2017-09-12] MEDS: LORazepam 1 MG TAB PO SCH ×2 (08:09→14:12)
[2017-09-12] MEDS: DOCUSATE SODIUM 100 MG CAP PO SCH ×2 (08:09→20:43)
[2017-09-12] MEDS: LISINOPRIL 10 MG TAB PO SCH (08:18)
[2017-09-12 13:41] VITALS: BP 136/76
[2017-09-12] MEDS: lamoTRIgine 25 MG TAB PO SCH (14:12)
--- NOTE | 2017-09-12 14:48 | BHS Progress Note ---
[facility] - Subjective Progress Notes Subjective Pt seen in treatment team meeting, his out-patient therapist not able to participate today due to holiday. Pt doing quite a bit better today, slept well all last night. Less psychomotor agitation today, was able to pick out his menu without paralyzing anxiety/obsessing. Pt is more hopeful that lithium may be helping. Still worrying a lot about whether or not he will need to go to the [facility]. Less somatic preoccupation today-- not complaining about dry mouth, eyes, sinuses, body pain... like previously. We discussed adding lamictal, with goal that pt will be able to be managed on just lithium, lamictal , and seroquel (but hopefully seroquel at a lower dose). We discussed lamictal , need to titrate slowly due to risk of rash, need to notify his provider if any rash noted, need to never stop this medication cold-turkey due to risk of seizures. Pt agreeable to starting lamictal, pt also agreeable to decreased dose today of ativan, which we will continue to wean as tolerated. Suicidal Ideation: Resolving (denies SI but still significant risk outside hospital due to depression and degree of hopelessness) Homicidal Ideation: None [facility] - Objective Physical Exam Vital Signs Vital Signs 09/11/17 09/12/17 17:10 13:41 Temp 98.2 Pulse 80 Resp 16 B/P (MAP) 136/76 (96) Pulse Ox 98 O2 Delivery Room Air Muscle Strength and Tone: WNL Gait and Station: Steady [facility] Medications Reviewed: Side Effects, Benefits of Medication, Risks Allergies Reviewed: Yes Mental Status Exam General Appearance: Casual, Good Eye Contact, Cooperative, Polite, Good Interaction, Psychomotor Retardation Speech: Clear, No Spontaneous, Normal Rate (Slightly slowed ), No Normal Rhythm , Normal Volume, Normal Tone, Delayed Mood: Dysthmic/Depressed Affect: Calm, Sad (I did see one smile today- first one this admission ), Withdrawn, No Tearful, Anxious (less anxious today), No Agitated Thought Process: Organized, Logical, Goal Directed, No Loose Associations, No Flight of Ideas Thought Content: Suicidal Ideation (denies SI but so hopeless with passive wishes that I feel he would be at high risk outside of hospital setting), No Homicidal Ideation, No Delusions, No Auditory Halllucinations, No Visual Hallucinations, No Thought Broadcasting, No Ideas of Reference, No Obsessions, No Compulsions Sensorium: Clear Cognition: Alert & Oriented-Person, Alert & Oriented-Place, Alert & Oriented- Time, Yewtb-Gtdpkmzu-Pzstndppg Memory: No Immediate, Recent, Other Intelligence: Average Insight Judgment: Poor (some improvement, but maladaptive stress coping mechanisms ongoing. ) [facility] Assessment and Plan Gxea-bt-Aido Encounter Date: Sep 12, 2017 Bssn-lu-Kzzr Encounter Time: 10:00 [facility] Plan: Admit to Unit, Necessary Precautions, Individual/Group Therapy, Admin /Titrate Meds, Educate Patient Tobacco Medications: Not Appropriate Condition Problems: (1) Suicide attempt by other psychotropic drug overdose (2) Bipolar disorder, mixed Status: Chronic (3) Cannabis use disorder, severe, in controlled environment Status: Chronic BOB COSTELLO MD Sep 12, 2017 14:48
[2017-09-12] MEDS: HYPROMELLOSE 0.4% LUB 15ML BTL OU PRN (20:42)
[2017-09-12] MEDS: QUEtiapine FUM 100 MG TAB PO SCH (20:44)
[2017-09-12] MEDS: LITHIUM CARBONATE 300 MG TABCR PO SCH (20:45)
[2017-09-12] MEDS: MELATONIN 3 MG TAB PO SCH (20:46)
[2017-09-12] MEDS ORDERED: LORazepam 1 MG TAB PO SCH (21:00)
[2017-09-12 22:06] VITALS: BP 107/76
[2017-09-13 08:20] VITALS: BP 126/64
[2017-09-13] MEDS: DOCUSATE SODIUM 100 MG CAP PO SCH ×2 (08:27→20:17)
[2017-09-13] MEDS: LORazepam 1 MG TAB PO SCH ×2 (08:27→13:34)
[2017-09-13] MEDS: TAMSULOSIN HCL 0.4 MG CAP PO SCH (08:28)
[2017-09-13] MEDS: lamoTRIgine 25 MG TAB PO SCH (08:28)
[2017-09-13] MEDS: MULTIVITAMINS TAB PO SCH (08:29)
[2017-09-13] MEDS: LISINOPRIL 10 MG TAB PO SCH (08:29)
[2017-09-13] MEDS: LEVOTHYROXINE SOD 0.05 MG TAB PO SCH (08:31)
[2017-09-13] MEDS: PATIENT'S OWN MED SC SCH (14:55)
[2017-09-13] MEDS: LITHIUM CARBONATE 300 MG TABCR PO SCH (20:16)
[2017-09-13] MEDS: clonazePAM 1 MG TAB PO SCH (20:16)
[2017-09-13] MEDS: MELATONIN 3 MG TAB PO SCH (20:16)
[2017-09-13] MEDS: QUEtiapine FUM 100 MG TAB PO SCH (20:17)
[2017-09-13 20:42] VITALS: BP 118/90
[2017-09-14 08:10] VITALS: BP 90/68
[2017-09-14] MEDS: TAMSULOSIN HCL 0.4 MG CAP PO SCH (08:11)
[2017-09-14] MEDS: clonazePAM 1 MG TAB PO SCH ×2 (08:11→20:34)
[2017-09-14] MEDS: DOCUSATE SODIUM 100 MG CAP PO SCH ×2 (08:11→20:34)
[2017-09-14] MEDS: MULTIVITAMINS TAB PO SCH (08:12)
[2017-09-14] MEDS: LISINOPRIL 10 MG TAB PO SCH (08:12)
[2017-09-14] MEDS: lamoTRIgine 25 MG TAB PO SCH (08:12)
[2017-09-14] MEDS: LEVOTHYROXINE SOD 0.05 MG TAB PO SCH (08:53)
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
--- NOTE | 2017-09-14 12:34 | BHS Progress Note ---
BHS - Subjective Progress Notes Subjective Pt seen in treatment team. Pt about the same today as yesterday, reporting anxiety and depression both at a 5/10. Denies SI but in the same breath says "the thought of living with this dry mouth is intolerable." He did sleep well last night. He devalues the benefit of lithium and fusses about the dry mouth. I pointed out his help-rejecting comments, and told him that he needs to give the lithium at least a 3 month trial and to not "shoot himself in the foot" by rejecting it when it is actually helping. Will decrease seroquel to 500 mg tonight due to dry mouth and urinary hestitancy. Told him the plan that Shantell Gavin and I discussed is to continue to titrate lithium and lamictal as tolerated, and to wean and discontinue clonazepam. Later, perhaps decrease seroquel again, though I suspect this pt will likely need to be maintained on a neuroleptic, given his somatic preoccupation of a near-delusional proportion, as well as his significant regression in logical thinking (inability to make decisions) under the least of stress. We discussed discharge plans: out- patient commitment, tentative discharge Tuesday, support from [employer] program , from his friend Betsy (who we spoke with and is willing to attend team meeting on Tuesday), having a case managers from [facility], managing his pillbox with assistance from nurse at [facility] with only a one week supply of meds at a time. Betsy stated she has already removed all pills from pt's home. Will check labs tomorrow morning-- lithium level will not be at steady-state for 900 mg q hs (5 days) until Tuesday morning. Pt's quantatative THC came back at 67 ( anything above 5 is positive) indicating use of cannabis within "the last several weeks". Discussed with pt who is again stating commitment to sobriety. Suicidal Ideation: Resolving Homicidal Ideation: None BHS - Objective Physical Exam Vital Signs Vital Signs 09/14/17 08:10 Temp 99.3 Pulse 82 Resp 20 B/P (MAP) 90/68 (75) Pulse Ox 95 O2 Delivery Room Air Muscle Strength and Tone: WNL Gait and Station: Steady [facility] Medications Reviewed: Side Effects, Benefits of Medication, Risks Allergies Reviewed: Yes Mental Status Exam General Appearance: Casual, Good Eye Contact, Cooperative, Polite, Good Interaction, Psychomotor Retardation Speech: Clear, No Spontaneous, Normal Rate (Slightly slowed ), No Normal Rhythm , Normal Volume, Normal Tone, Delayed Mood: Dysthmic/Depressed Affect: Calm, Sad, Withdrawn, No Tearful, Anxious (Worried statements, "What if I fail?"), No Agitated Thought Process: Organized, Logical, Goal Directed, No Loose Associations, No Flight of Ideas Thought Content: Suicidal Ideation (denies SI but so hopeless with passive wishes that I feel he would be at high risk outside of hospital setting), No Homicidal Ideation, No Delusions, No Auditory Halllucinations, No Visual Hallucinations, No Thought Broadcasting, No Ideas of Reference, No Obsessions, No Compulsions Sensorium: Clear Cognition: Alert & Oriented-Person, Alert & Oriented-Place, Alert & Oriented- Time, Idldb-Ydxsnqpm-Iaqtrnhgy Memory: No Immediate, Recent, Other Intelligence: Average Insight Judgment: Poor (Some improvement, but maladaptive stress coping mechanisms ongoing. ) [facility] Assessment and Plan Gnys-np-Bsmn Encounter Date: Sep 14, 2017 Ltfz-nb-[id number] Encounter Time: 09:00 [facility] Plan: Admit to Unit, Necessary Precautions, Individual/Group Therapy, Admin /Titrate Meds, Educate Patient Tobacco Medications: Not Appropriate Condition Problems: (1) Bipolar disorder, mixed Status: Chronic (2) Cluster B personality disorder (3) Suicide attempt by other psychotropic drug overdose (4) Cannabis use disorder, severe, in controlled environment Status: Chronic BOB COSTELLO MD Sep 14, 2017 12:34
[2017-09-14] MEDS: MELATONIN 3 MG TAB PO SCH (20:35)
[2017-09-14] MEDS: QUEtiapine FUM 100 MG TAB PO SCH (20:35)
[2017-09-14] MEDS: LITHIUM CARBONATE 300 MG TABCR PO SCH (20:35)
[2017-09-14 20:54] VITALS: BP 115/81
[2017-09-15 06:18] LABS: PLATELET COUNT, AUTOMATED 288 K/uL (150-450)
[2017-09-15 08:10] VITALS: BP 110/70
[2017-09-15] MEDS: TAMSULOSIN HCL 0.4 MG CAP PO SCH (08:14)
[2017-09-15] MEDS: DOCUSATE SODIUM 100 MG CAP PO SCH ×2 (08:14→20:55)
[2017-09-15] MEDS: clonazePAM 1 MG TAB PO SCH ×2 (08:14→20:56)
[2017-09-15] MEDS: LISINOPRIL 10 MG TAB PO SCH (08:15)
[2017-09-15] MEDS: LEVOTHYROXINE SOD 0.05 MG TAB PO SCH (08:15)
[2017-09-15] MEDS: MULTIVITAMINS TAB PO SCH (08:15)
[2017-09-15] MEDS: lamoTRIgine 25 MG TAB PO SCH (08:15)
--- NOTE | 2017-09-15 13:53 | BHS Progress Note ---
BHS - Subjective Progress Notes Subjective met with patient alone in the lunch room today, patient quickly asking "why can' t we meet in there, motioning to treatment team room". Patient then stating that "everyone else went in there". Patient was informed that not everyone else went in there today, and then discussion of patient's diagnosis took place. Patient then noted to quickly return to a more helpless state, and indicating he was unable to make decisions, and "you are the doctor". Patient proclaiming "negative side effects" from lithium, but unable to verbalize a specific side effect other than "dry mouth", or increased urination. Notably patient stating today "that he does not remember smoking cannabis since June" as confirmatory cannabis screen is positive. Patient also continues to declare that he did indeed overdose on #90 1mg Ativan prescribed to him, although there was no clinical evidence of an overdose of that magnitude upon arrival to the hospital. Will continue current regimen, and shore up discharge plans for Tuesday. Suicidal Ideation: None Homicidal Ideation: None S - Objective Physical Exam Vital Signs Vital Signs Date Time Temp Pulse Resp B/P (MAP) Pulse Ox O2 Delivery O2 Flow Rate FiO2 09/15/17 08:10 98.4 80 14 110/70 (83) 95 Room Air Hematology Test 09/05/17 13:00 09/12/17 13:59 09/15/17 06:00 Miscellaneous Test See report Urine Opiates Screen Negative Urine Barbiturates Screen Negative Ur Tricyclic Antidepressants Screen Negative Urine Phencyclidine Screen Negative Urine Amphetamines Screen Negative Urine Benzodiazepines Screen Positive Urine Cocaine Screen Negative Urine Cannabinoids Screen Positive Lab Scanned Report Reference Lab [id number] Red Blood Count 4.39 M/uL (4.00-5.60) Mean Corpuscular Volume 88.9 fL (80.0-96.0) Mean Corpuscular Hemoglobin 31.5 pg (26.0-33.0) Mean Corpuscular Hemoglobin Concent 35.4 g/dL (32.0-36.0) Red Cell Distribution Width 13.6 % (11.5-14.5) Mean Platelet Volume 6.9 fL (7.2-11.1) Neutrophils (%) (Auto) 63.0 % (39.4-72.5) Lymphocytes (%) (Auto) 24.8 % (17.6-49.6) Monocytes (%) (Auto) 8.2 % (4.1-12.4) Eosinophils (%) (Auto) 3.1 % (0.4-6.7) Basophils (%) (Auto) 0.9 % (0.3-1.4) Nucleated RBC Relative Count (auto) 0.0 /100WBC Neutrophils # (Auto) 4.3 K/uL (2.0-7.4) Lymphocytes # (Auto) 1.7 K/uL (1.3-3.6) Monocytes # (Auto) 0.6 K/uL (0.3-1.0) Eosinophils # (Auto) 0.2 K/uL (0.0-0.5) Basophils # (Auto) 0.1 K/uL (0.0-0.1) Nucleated RBC Absolute Count (auto) 0.00 K/uL Sodium Level 137 mmol/L (137-145) Potassium Level 4.1 mmol/L (3.5-5.0) Chloride Level 102 mmol/L (98-107) Carbon Dioxide Level 25 mmol/L (22-30) Blood Urea Nitrogen 14 mg/dl (9-21) Creatinine 1.10 mg/dl (0.66-1.25) Glomerular Filtration Rate Calc > 60.0 Random Glucose 89 mg/dl (75-110) Calcium Level 9.4 mg/dl (8.4-10.2) Total Bilirubin 0.3 mg/dl (0.2-1.3) Aspartate Amino Transf (AST/SGOT) 17 U/L (0-35) Alanine Aminotransferase (ALT/SGPT) 38 U/L (0-56) Alkaline Phosphatase 56 U/L (0-126) Total Protein 6.2 gm/dl (6.3-8.2) Albumin 3.4 g/dl (3.5-5.0) [place] Level 0.7 mmol/L (0.6-1.2) Chemistry Test 09/05/17 13:00 09/12/17 13:59 09/15/17 06:00 Miscellaneous Test See report Urine Opiates Screen Negative Urine Barbiturates Screen Negative Ur Tricyclic Antidepressants Screen Negative Urine Phencyclidine Screen Negative Urine Amphetamines Screen Negative Urine Benzodiazepines Screen Positive Urine Cocaine Screen Negative Urine Cannabinoids Screen Positive Lab Scanned Report Reference Lab [id number] White Blood Count 6.9 k/uL (4.5-11.0) Red Blood Count 4.39 M/uL (4.00-5.60) Hemoglobin 13.8 g/dL (14.0-18.0) Hematocrit 39.0 % (42.0-52.0) Mean Corpuscular Volume 88.9 fL (80.0-96.0) Mean Corpuscular Hemoglobin 31.5 pg (26.0-33.0) Mean Corpuscular Hemoglobin Concent 35.4 g/dL (32.0-36.0) Red Cell Distribution Width 13.6 % (11.5-14.5) Platelet Count 288 K/uL (150-450) Mean Platelet Volume 6.9 fL (7.2-11.1) Neutrophils (%) (Auto) 63.0 % (39.4-72.5) Lymphocytes (%) (Auto) 24.8 % (17.6-49.6) Monocytes (%) (Auto) 8.2 % (4.1-12.4) Eosinophils (%) (Auto) 3.1 % (0.4-6.7) Basophils (%) (Auto) 0.9 % (0.3-1.4) Nucleated RBC Relative Count (auto) 0.0 /100WBC Neutrophils # (Auto) 4.3 K/uL (2.0-7.4) Lymphocytes # (Auto) 1.7 K/uL (1.3-3.6) Monocytes # (Auto) 0.6 K/uL (0.3-1.0) Eosinophils # (Auto) 0.2 K/uL (0.0-0.5) Basophils # (Auto) 0.1 K/uL (0.0-0.1) Nucleated RBC Absolute Count (auto) 0.00 K/uL Glomerular Filtration Rate Calc > 60.0 Calcium Level 9.4 mg/dl (8.4-10.2) Total Bilirubin 0.3 mg/dl (0.2-1.3) Aspartate Amino Transf (AST/SGOT) 17 U/L (0-35) Alanine Aminotransferase (ALT/SGPT) 38 U/L (0-56) Alkaline Phosphatase 56 U/L (0-126) Total Protein 6.2 gm/dl (6.3-8.2) Albumin 3.4 g/dl (3.5-5.0) [place] Level 0.7 mmol/L (0.6-1.2) Toxicology Test 09/05/17 13:00 09/15/17 06:00 Urine Opiates Screen Negative Urine Barbiturates Screen Negative Ur Tricyclic Antidepressants Screen Negative Urine Phencyclidine Screen Negative Urine Amphetamines Screen Negative Urine Benzodiazepines Screen Positive Urine Cocaine Screen Negative Urine Cannabinoids Screen Positive [place] Level 0.7 mmol/L (0.6-1.2) Muscle Strength and Tone: WNL Gait and Station: Steady [facility] Medications Reviewed: Side Effects, Benefits of Medication, Risks Allergies Reviewed: Yes Mental Status Exam General Appearance: Casual, Good Eye Contact, Cooperative, Polite, Good Interaction, Psychomotor Retardation, Bizarre Mannerisms (bizarre, intentional blank stare at times. ) Speech: Clear, No Spontaneous, Normal Rate (Slightly slowed ), No Normal Rhythm , Normal Volume, Normal Tone, Delayed Mood: Dysthmic/Depressed Affect: Calm, Sad, Withdrawn, No Tearful, Anxious (Worried statements, "I just don't know if I can make the appointments" ), No Agitated Thought Process: Organized, Logical, Goal Directed, No Loose Associations, No Flight of Ideas Thought Content: Suicidal Ideation (denies SI today), No Homicidal Ideation, No Delusions, No Auditory Halllucinations, No Visual Hallucinations, No Thought Broadcasting, No Ideas of Reference, No Obsessions, No Compulsions Sensorium: Clear Cognition: Alert & Oriented-Person, Alert & Oriented-Place, Alert & Oriented- Time, Cskxz-Fexaxmef-Foghghold Memory: Immediate, Recent, Remote, Other (patient can fluctuate quickly between remebering well, and "no memory at all" depending on if he thinks this is beneficial.) Intelligence: Average (average to above) Insight Judgment: Poor (Some improvement, but maladaptive stress coping mechanisms ongoing. ) Result Diagram: 09/15/[id number]/[id number] [facility] Assessment and Plan [id number] Encounter Date: Sep 15, 2017 Cnkj-st-Urri Encounter Time: 11:30 [facility] Plan: Admit to Unit, Necessary Precautions, Individual/Group Therapy, Admin /Titrate Meds, Educate Patient Tobacco Medications: Not Appropriate Condition Problems: (1) Bipolar disorder, mixed Status: Chronic Assessment & Plan: underlying maladaptive personality traits ongoing. Rule out personality disorder. (2) Cannabis use disorder, severe, in controlled environment Status: Chronic Assessment & Plan: confirmation screen positive. Patient denies using since June 2017. Multiple positive screens. (3) Personality disorder, unspecified Status: Chronic Assessment & Plan: cluster B traits Condition 1. continue treatment. 2. plan for discharge on Tuesday, under outpatient commitment. LON HOWARD MD Sep 15, 2017 13:53
[2017-09-15] MEDS: MELATONIN 3 MG TAB PO SCH (20:54)
[2017-09-15] MEDS: LITHIUM CARBONATE 300 MG TABCR PO SCH (20:55)
[2017-09-15] MEDS: QUEtiapine FUM 100 MG TAB PO SCH (20:57)
[2017-09-16 05:39] VITALS: BP 104/71
[2017-09-16 08:22] VITALS: BP 98/68
[2017-09-16] MEDS: TAMSULOSIN HCL 0.4 MG CAP PO SCH (08:29)
[2017-09-16] MEDS: clonazePAM 1 MG TAB PO SCH ×2 (08:29→20:20)
[2017-09-16] MEDS: DOCUSATE SODIUM 100 MG CAP PO SCH ×2 (08:29→20:20)
[2017-09-16] MEDS: LISINOPRIL 10 MG TAB PO SCH (08:30)
[2017-09-16] MEDS: LEVOTHYROXINE SOD 0.05 MG TAB PO SCH (08:30)
[2017-09-16] MEDS: MULTIVITAMINS TAB PO SCH (08:30)
[2017-09-16] MEDS: lamoTRIgine 25 MG TAB PO SCH (08:30)
--- NOTE | 2017-09-16 09:04 | BHS Progress Note ---
BHS - Subjective Progress Notes Subjective Patient cooperative today, notably complaining to staff this AM about the coffee being "old" and asking for new coffee. Upon meeting in treatment team today, patient once aging seemingly purposely promoting a blank affect, with slow verbal responses, stating that he remembers taking approximately #90 1mg Ativan in an overdose attempt. Notably on arrival to the hospital he had no clinical evidence of an overdose of this magnitude, nor evidence of any amount of overdose on benzodiazepines. Patient also continues to deny the use of cannabis, but later stating "the cannabis made me paranoid". Will continue to work on outpatient commitment, and shoring up safe plan, concerning medication administration in this patient who at the very least verbalizes significant potential for overdose, based on this admission. No other concerns. Help seeking and help rejecting behaviors continue. Suicidal Ideation: None Homicidal Ideation: None S - Objective Physical Exam Vital Signs Vital Signs Date Time Temp Pulse Resp B/P (MAP) Pulse Ox O2 Delivery O2 Flow Rate FiO2 09/16/17 05:39 99.3 86 104/71 (82) 97 Room Air 09/15/17 08:10 14 Hematology Test 09/05/17 13:00 09/12/17 13:59 09/15/17 06:00 Miscellaneous Test See report Urine Opiates Screen Negative Urine Barbiturates Screen Negative Ur Tricyclic Antidepressants Screen Negative Urine Phencyclidine Screen Negative Urine Amphetamines Screen Negative Urine Benzodiazepines Screen Positive Urine Cocaine Screen Negative Urine Cannabinoids Screen Positive Lab Scanned Report Reference Lab [id number] Red Blood Count 4.39 M/uL (4.00-5.60) Mean Corpuscular Volume 88.9 fL (80.0-96.0) Mean Corpuscular Hemoglobin 31.5 pg (26.0-33.0) Mean Corpuscular Hemoglobin Concent 35.4 g/dL (32.0-36.0) Red Cell Distribution Width 13.6 % (11.5-14.5) Mean Platelet Volume 6.9 fL (7.2-11.1) Neutrophils (%) (Auto) 63.0 % (39.4-72.5) Lymphocytes (%) (Auto) 24.8 % (17.6-49.6) Monocytes (%) (Auto) 8.2 % (4.1-12.4) Eosinophils (%) (Auto) 3.1 % (0.4-6.7) Basophils (%) (Auto) 0.9 % (0.3-1.4) Nucleated RBC Relative Count (auto) 0.0 /100WBC Neutrophils # (Auto) 4.3 K/uL (2.0-7.4) Lymphocytes # (Auto) 1.7 K/uL (1.3-3.6) Monocytes # (Auto) 0.6 K/uL (0.3-1.0) Eosinophils # (Auto) 0.2 K/uL (0.0-0.5) Basophils # (Auto) 0.1 K/uL (0.0-0.1) Nucleated RBC Absolute Count (auto) 0.00 K/uL Sodium Level 137 mmol/L (137-145) Potassium Level 4.1 mmol/L (3.5-5.0) Chloride Level 102 mmol/L (98-107) Carbon Dioxide Level 25 mmol/L (22-30) Blood Urea Nitrogen 14 mg/dl (9-21) Creatinine 1.10 mg/dl (0.66-1.25) Glomerular Filtration Rate Calc > 60.0 Random Glucose 89 mg/dl (75-110) Calcium Level 9.4 mg/dl (8.4-10.2) Total Bilirubin 0.3 mg/dl (0.2-1.3) Aspartate Amino Transf (AST/SGOT) 17 U/L (0-35) Alanine Aminotransferase (ALT/SGPT) 38 U/L (0-56) Alkaline Phosphatase 56 U/L (0-126) Total Protein 6.2 gm/dl (6.3-8.2) Albumin 3.4 g/dl (3.5-5.0) [place] Level 0.7 mmol/L (0.6-1.2) Chemistry Test 09/05/17 13:00 09/12/17 13:59 09/15/17 06:00 Miscellaneous Test See report Urine Opiates Screen Negative Urine Barbiturates Screen Negative Ur Tricyclic Antidepressants Screen Negative Urine Phencyclidine Screen Negative Urine Amphetamines Screen Negative Urine Benzodiazepines Screen Positive Urine Cocaine Screen Negative Urine Cannabinoids Screen Positive Lab Scanned Report Reference Lab [id number] White Blood Count 6.9 k/uL (4.5-11.0) Red Blood Count 4.39 M/uL (4.00-5.60) Hemoglobin 13.8 g/dL (14.0-18.0) Hematocrit 39.0 % (42.0-52.0) Mean Corpuscular Volume 88.9 fL (80.0-96.0) Mean Corpuscular Hemoglobin 31.5 pg (26.0-33.0) Mean Corpuscular Hemoglobin Concent 35.4 g/dL (32.0-36.0) Red Cell Distribution Width 13.6 % (11.5-14.5) Platelet Count 288 K/uL (150-450) Mean Platelet Volume 6.9 fL (7.2-11.1) Neutrophils (%) (Auto) 63.0 % (39.4-72.5) Lymphocytes (%) (Auto) 24.8 % (17.6-49.6) Monocytes (%) (Auto) 8.2 % (4.1-12.4) Eosinophils (%) (Auto) 3.1 % (0.4-6.7) Basophils (%) (Auto) 0.9 % (0.3-1.4) Nucleated RBC Relative Count (auto) 0.0 /100WBC Neutrophils # (Auto) 4.3 K/uL (2.0-7.4) Lymphocytes # (Auto) 1.7 K/uL (1.3-3.6) Monocytes # (Auto) 0.6 K/uL (0.3-1.0) Eosinophils # (Auto) 0.2 K/uL (0.0-0.5) Basophils # (Auto) 0.1 K/uL (0.0-0.1) Nucleated RBC Absolute Count (auto) 0.00 K/uL Glomerular Filtration Rate Calc > 60.0 Calcium Level 9.4 mg/dl (8.4-10.2) Total Bilirubin 0.3 mg/dl (0.2-1.3) Aspartate Amino Transf (AST/SGOT) 17 U/L (0-35) Alanine Aminotransferase (ALT/SGPT) 38 U/L (0-56) Alkaline Phosphatase 56 U/L (0-126) Total Protein 6.2 gm/dl (6.3-8.2) Albumin 3.4 g/dl (3.5-5.0) [place] Level 0.7 mmol/L (0.6-1.2) Toxicology Test 09/05/17 13:00 09/15/17 06:00 Urine Opiates Screen Negative Urine Barbiturates Screen Negative Ur Tricyclic Antidepressants Screen Negative Urine Phencyclidine Screen Negative Urine Amphetamines Screen Negative Urine Benzodiazepines Screen Positive Urine Cocaine Screen Negative Urine Cannabinoids Screen Positive [place] Level 0.7 mmol/L (0.6-1.2) Muscle Strength and Tone: WNL Gait and Station: Steady [facility] Medications Reviewed: Side Effects, Benefits of Medication, Risks Allergies Reviewed: Yes Mental Status Exam General Appearance: Casual, Well Groomed, Good Eye Contact, Cooperative, Polite , Good Interaction, Psychomotor Retardation, Bizarre Mannerisms (bizarre, intentional blank stare at times. ) Speech: Clear, No Spontaneous, Normal Rate (Slightly slowed ), No Normal Rhythm , Normal Volume, Normal Tone, Delayed Mood: Dysthmic/Depressed Affect: Calm, Sad, Withdrawn, No Tearful, Anxious (Worried statements, "I just don't know if I can make the appointments" ), No Agitated Thought Process: Organized, Logical, Goal Directed, No Loose Associations, No Flight of Ideas Thought Content: Suicidal Ideation (denies SI today), No Homicidal Ideation, No Delusions, No Auditory Halllucinations, No Visual Hallucinations, No Thought Broadcasting, No Ideas of Reference, No Obsessions, No Compulsions Sensorium: Clear Cognition: Alert & Oriented-Person, Alert & Oriented-Place, Alert & Oriented- Time, Pakbi-Tgnuuihc-Mmpgjazso Memory: Immediate, Recent, Remote, Other (patient can fluctuate quickly between remebering well, and "no memory at all" depending on if he thinks this is beneficial.) Intelligence: Average (average to above) Insight Judgment: Poor (Some improvement, but maladaptive stress coping mechanisms ongoing. ) Result Diagram: 09/15/17 0609/15/17 06 [facility] Assessment and Plan [id number] Encounter Date: Sep 16, 2017 [id number] Encounter Time: 08:40 [facility] Plan: Admit to Unit, Necessary Precautions, Individual/Group Therapy, Admin /Titrate Meds, Educate Patient Tobacco Medications: Not Appropriate Condition Problems: (1) Bipolar disorder, mixed Status: Chronic Assessment & Plan: underlying maladaptive personality traits ongoing. Rule out personality disorder. (2) Cannabis use disorder, severe, in controlled environment Status: Chronic Assessment & Plan: confirmation screen positive. Patient denies using since June 2017. Multiple positive screens. (3) Personality disorder, unspecified Status: Chronic Assessment & Plan: cluster B traits Condition 1. continue treatment. 2. plan for discharge on Tuesday. LON HOWARD MD Sep 16, 2017 09:04
[2017-09-16 18:08] VITALS: BP 106/72
[2017-09-16] MEDS: QUEtiapine FUM 100 MG TAB PO SCH (20:21)
[2017-09-16] MEDS: LITHIUM CARBONATE 300 MG TABCR PO SCH (20:21)
[2017-09-16] MEDS: MELATONIN 3 MG TAB PO SCH (20:54)
[2017-09-17 06:14] VITALS: BP 102/67
[2017-09-17] MEDS: LISINOPRIL 10 MG TAB PO SCH (08:12)
[2017-09-17] MEDS: TAMSULOSIN HCL 0.4 MG CAP PO SCH (08:14)
[2017-09-17] MEDS: LEVOTHYROXINE SOD 0.05 MG TAB PO SCH (08:14)
[2017-09-17] MEDS: MULTIVITAMINS TAB PO SCH (08:14)
[2017-09-17] MEDS: lamoTRIgine 25 MG TAB PO SCH (08:14)
[2017-09-17] MEDS: DOCUSATE SODIUM 100 MG CAP PO SCH ×2 (08:14→20:16)
[2017-09-17] MEDS: clonazePAM 1 MG TAB PO SCH ×2 (08:14→20:16)
--- NOTE | 2017-09-17 09:26 | BHS Progress Note ---
S - Subjective Progress Notes Subjective "I'm just angry with myself." Rates depression "3-4" 1-10 scale, 10 worst Rates anxiety "5-6" Denies anger except at self Denies mood swings Sleep sufficient, states sleeping up to ten hours at night, "But I'm a little bit groggy during the day." Appetite good, energy level fair Denies suicidal or homicidal ideation Suicidal Ideation: None Homicidal Ideation: None S - Objective Physical Exam Muscle Strength and Tone: WNL Gait and Station: Steady [facility] Medications Reviewed: Side Effects, Benefits of Medication, Risks Allergies Reviewed: Yes Mental Status Exam General Appearance: Casual, Well Groomed, Good Eye Contact, Cooperative, Polite , Good Interaction, Psychomotor Retardation, Bizarre Mannerisms (bizarre, intentional blank stare at times. ) Speech: Clear, No Spontaneous, Normal Rate (Slightly slowed ), No Normal Rhythm , Normal Volume, Normal Tone, Delayed Mood: Dysthmic/Depressed Affect: Calm, Sad, Withdrawn, No Tearful, Anxious (Worried statements, "I just don't know if I can make the appointments" ), No Agitated Thought Process: Organized, Logical, Goal Directed, No Loose Associations, No Flight of Ideas Thought Content: Suicidal Ideation (denies SI today), No Homicidal Ideation, No Delusions, No Auditory Halllucinations, No Visual Hallucinations, No Thought Broadcasting, No Ideas of Reference, No Obsessions, No Compulsions Sensorium: Clear Cognition: Alert & Oriented-Person, Alert & Oriented-Place, Alert & Oriented- Time, Igbvs-Rdrbwmsc-Jjoyxuhxg Memory: Immediate, Recent, Remote, Other (patient can fluctuate quickly between remebering well, and "no memory at all" depending on if he thinks this is beneficial.) Intelligence: Average (average to above) Insight Judgment: Poor (Some improvement, but maladaptive stress coping mechanisms ongoing. ) Result Diagram: 09/15/17 0600 09/15/17 0600 Lab Vital Signs Date Time Temp Pulse Resp B/P (MAP) Pulse Ox O2 Delivery O2 Flow Rate FiO2 09/17/17 06:14 98.1 82 102/67 (79) 96 Room Air 09/16/17 18:08 16 Allergies Coded Allergies milk (Verified Allergy, Intermediate, DIARRHEA, 09/03/17) tolerates yogurt and cheese codeine (Verified Allergy, Mild, 09/02/17) diazepam (Verified Allergy, Mild, 09/02/17) morphine (Verified Allergy, Mild, ANAPHALAXIS, 09/02/17) tramadol (Verified Allergy, Mild, 09/02/17) ciprofloxacin (Verified Allergy, Unknown, 09/02/17) clarithromycin (Verified Allergy, Unknown, 09/02/17) prednisone (Verified Allergy, Unknown, DELUSIONS, 09/02/17) "STERIOD INDUCED TY" [facility] Assessment and Plan [id number] Encounter Date: Sep 17, 2017 [id number] Encounter Time: 11:34 [facility] Plan: Admit to Unit, Necessary Precautions, Individual/Group Therapy, Admin /Titrate Meds, Educate Patient Tobacco Medications: Not Appropriate Condition Problems: (1) Bipolar disorder with depression Status: Chronic (2) Generalized anxiety disorder Status: Chronic (3) Obstructive sleep apnea Status: Chronic (4) Primary immune deficiency disorder Status: Chronic (5) Cannabis use disorder, mild, abuse Status: Chronic Condition Continue current plan of care Discuss risks associated with assistant terminal manager benzodiazepine use Discharge potentially Tuesday09/19/17, ongoing coordination of care with [facility] and outpatient providers RAAD GIFFORD NP Sep 17, 2017 09:26
[2017-09-17 13:10] VITALS: BP 116/64
[2017-09-17] MEDS: ASPIRIN 325 MG ENTERIC COATED PO PRN (17:49)
[2017-09-17] MEDS: LITHIUM CARBONATE 300 MG TABCR PO SCH (20:16)
[2017-09-17] MEDS: QUEtiapine FUM 100 MG TAB PO SCH (20:17)
[2017-09-17] MEDS: MELATONIN 3 MG TAB PO SCH (20:17)
[2017-09-17 23:00] VITALS: BP 116/62
[2017-09-18 08:35] VITALS: BP 112/68
[2017-09-18] MEDS: MULTIVITAMINS TAB PO SCH (08:38)
[2017-09-18] MEDS: DOCUSATE SODIUM 100 MG CAP PO SCH ×2 (08:38→20:17)
[2017-09-18] MEDS: TAMSULOSIN HCL 0.4 MG CAP PO SCH (08:38)
[2017-09-18] MEDS: clonazePAM 1 MG TAB PO SCH ×2 (08:38→20:17)
[2017-09-18] MEDS: lamoTRIgine 25 MG TAB PO SCH (08:38)
[2017-09-18] MEDS: LISINOPRIL 10 MG TAB PO SCH (08:40)
[2017-09-18] MEDS: LEVOTHYROXINE SOD 0.05 MG TAB PO SCH (08:44)
--- NOTE | 2017-09-18 10:01 | BHS Progress Note ---
[facility] - Subjective Progress Notes Subjective "I think I spent too much time in my room yesterday. I'm feeling a little overwhelmed. I have fear of my inability to manage things once I get home." Anxiety "Pretty high, 4" 1-10 scale, 10 worst Anger "Just at myself." Depression "4" denies suicidal ideation Reluctant and pessimistic about discharge potentially tomorrow Unsure of benefit from medications Suicidal Ideation: None Homicidal Ideation: None S - Objective Physical Exam Muscle Strength and Tone: WNL Gait and Station: Steady [facility] Medications Reviewed: Side Effects, Benefits of Medication, Risks Allergies Reviewed: Yes Mental Status Exam General Appearance: Casual, Well Groomed, Good Eye Contact, Cooperative, Polite , Good Interaction, Psychomotor Retardation, Bizarre Mannerisms (bizarre, intentional blank stare at times. ) Speech: Clear, No Spontaneous, Normal Rate (Slightly slowed ), No Normal Rhythm , Normal Volume, Normal Tone, Delayed Mood: Dysthmic/Depressed Affect: Calm, Sad, Withdrawn, No Tearful, Anxious (Worried statements, "I just don't know if I can make the appointments" ), No Agitated Thought Process: Organized, Logical, Goal Directed, No Loose Associations, No Flight of Ideas Thought Content: Suicidal Ideation (denies SI today), No Homicidal Ideation, No Delusions, No Auditory Halllucinations, No Visual Hallucinations, No Thought Broadcasting, No Ideas of Reference, No Obsessions, No Compulsions Sensorium: Clear Cognition: Alert & Oriented-Person, Alert & Oriented-Place, Alert & Oriented- Time, Dlieq-Ssqljtxa-Vvuzusrlx Memory: Immediate, Recent, Remote, Other (patient can fluctuate quickly between remebering well, and "no memory at all" depending on if he thinks this is beneficial.) Intelligence: Average (average to above) Insight Judgment: Poor (Some improvement, but maladaptive stress coping mechanisms ongoing. ) Result Diagram: 09/15/17 0600 09/15/17 0600 Lab Vital Signs Date Time Temp Pulse Resp B/P (MAP) Pulse Ox O2 Delivery O2 Flow Rate FiO2 09/17/17 23:00 98.8 84 116/62 (80) 96 Room Air 09/17/17 13:10 16 Allergies Coded Allergies milk (Verified Allergy, Intermediate, DIARRHEA, 09/03/17) tolerates yogurt and cheese codeine (Verified Allergy, Mild, 09/02/17) diazepam (Verified Allergy, Mild, 09/02/17) morphine (Verified Allergy, Mild, ANAPHALAXIS, 09/02/17) tramadol (Verified Allergy, Mild, 09/02/17) ciprofloxacin (Verified Allergy, Unknown, 09/02/17) clarithromycin (Verified Allergy, Unknown, 09/02/17) prednisone (Verified Allergy, Unknown, DELUSIONS, 09/02/17) "STERIOD INDUCED TY" [facility] Assessment and Plan [id number]-[id number] Encounter Date: Sep 18, 2017 [id number]-[id number] Encounter Time: 10:01 [facility] Plan: Admit to Unit, Necessary Precautions, Individual/Group Therapy, Admin /Titrate Meds, Educate Patient Tobacco Medications: Not Appropriate Condition Problems: (1) Bipolar disorder with depression Status: Chronic (2) Generalized anxiety disorder Status: Chronic (3) Obstructive sleep apnea Status: Chronic (4) Primary immune deficiency disorder Status: Chronic (5) Cannabis use disorder, mild, abuse Status: Chronic Condition Increase Lamotrigine to 100 mg po daily Continue Kaylor, lithium level 0.7 09/15/17, continue Quetiapine Ongoing discharge planning, collaboration with [facility] and outpatient providers Encourage out of bed daytime hours RAAD GIFFORD NP Sep 18, 2017 10:01
[2017-09-18] MEDS ORDERED: lamoTRIgine 25 MG TAB PO ONE (13:40)
[2017-09-18] MEDS: ASPIRIN 325 MG ENTERIC COATED PO PRN (16:07)
[2017-09-18 19:26] VITALS: BP 122/70
[2017-09-18] MEDS: QUEtiapine FUM 100 MG TAB PO SCH (20:17)
[2017-09-18] MEDS: LITHIUM CARBONATE 300 MG TABCR PO SCH (20:17)
[2017-09-18] MEDS: MELATONIN 3 MG TAB PO SCH (20:18)
[2017-09-19] MEDS: LISINOPRIL 10 MG TAB PO SCH (08:04)
[2017-09-19] MEDS: MULTIVITAMINS TAB PO SCH (08:04)
[2017-09-19] MEDS: TAMSULOSIN HCL 0.4 MG CAP PO SCH (08:04)
[2017-09-19] MEDS: DOCUSATE SODIUM 100 MG CAP PO SCH (08:04)
[2017-09-19] MEDS: clonazePAM 1 MG TAB PO SCH (08:04)
[2017-09-19] MEDS: LEVOTHYROXINE SOD 0.05 MG TAB PO SCH (08:04)
[2017-09-19 08:46] VITALS: BP 118/72
[2017-09-19] MEDS ORDERED: lamoTRIgine 100 MG TAB PO SCH (09:00)
[2017-09-19] MEDS ORDERED: DOCU-416 PO (09:18)
[2017-09-19] MEDS ORDERED: CLON-1 PO ×2 (09:19)
[2017-09-19] MEDS ORDERED: LITH300T5 PO (09:21)
[2017-09-19] MEDS ORDERED: MELA3TAB31 PO (09:22)
[2017-09-19] MEDS ORDERED: LAMO100T56 PO (09:22)
[2017-09-19] MEDS ORDERED: MULT-859 PO (09:23)
[2017-09-19] MEDS ORDERED: DEXT15DR OU (09:24)
--- NOTE | 2017-09-20 18:50 | DISCHARGE SUMMARY ---
Patient was seen at approximately 0840 hours on the morning of September 19, 2017 for this discharge summary. FINAL DIAGNOSES PER DSM-V Bipolar disorder unspecified. Personality disorder unspecified. Cannabis use disorder severe. Cannabis related disorder. Social stressors resulting from heavy cannabis use. Maladaptive stress coping mechanisms. Patient having suspended commitment in place and a significant outpatient followup in place. REASON FOR ADMISSION This is a 56-year-old male who is fairly well known to this provider from previous outpatient visits. Patient is having a cycle of what appears to be significant psychological regression overall. Patient was noted to be recently at [facility] through [facility] in [place], [place]. Patient then was admitted for suicidal thoughts to [facility]. Upon discharge patient quickly returned to the emergency room at [facility] in [place] where patient proclaiming an overdose on Ativan which was prescribed at [facility]. It is notable that patient reported taking an entire bottle of at least 60 1-mg Ativan tablets. Patient showing no clinical signs of an overdose of this magnitude. Patient presenting with empty bottle of Ativan. Patient not outright denying any selling of Ativan on the street. Patient initially denying any recent marijuana use as well. Confirmatory cannabis screen was positive for cannabinoids. Patient later admitting to what appears to be heavy marijuana use. Patient was placed on an emergency detainment. Patient also had an outpatient commitment to the [facility] put in place. Patient's medications which historically include large dose antipsychotics for mood stability were lowered. The patient was started on Lamictal and lithium. Patient continued to be overall an inaccurate historian throughout his stay. Patient later taking somewhat of an active role in his treatment. Patient did agree to close followup on an outpatient basis thorough [facility] program and [facility] staff. Patient adamantly denying any suicidal or homicidal thoughts upon discharge. Patient indicating an understanding of current medication regimen and the necessity to abstain from all marijuana and take medications as prescribed. PHYSICAL EXAMINATION: GENERAL: Please see emergency room note. Notable for a 56-year-old male. At the time of presentation, patient claiming a significant overdose on Ativan with no clinical signs of an overdose present. VITAL SIGNS: At the time of admission temperature 98.8, pulse 93, respiratory rate 20, blood pressure 111/72 and pulse oximetry 94 on room air. On the Behavioral Health Unit at the time of discharge patient's vital signs indicated a temperature of 98.8, pulse 79, respiratory rate 16, blood pressure 118/72 and pulse oximetry 96 on room air. LABORATORY DATA At the time of admission CBC unremarkable, CMP unremarkable. TSH 2.240, in normal range. Urinalysis unremarkable. Toxicology screen positive for cannabinoids, positive for benzodiazepine, negative for other substances of abuse. CBC on the Behavioral Health Unit on September 15, 2017 was notable for hemoglobin and hematocrit slightly low at 38.8 and 39.0 respectively. CMP on same date unremarkable. Confirmatory cannabinoid screen was positive. [place] level on September 19, 2017 was 0.9. MENTAL STATUS EXAMINATION AT THE TIME OF DISCHARGE GENERAL APPEARANCE, BEHAVIOR AND ATTITUDE: This is a 56-year-old male. No psychomotor agitation or retardation noted. Patient at times indicating an inability to make simple decisions. However, then patient simultaneously very inquisitive about very minor details regarding his stay. Patient demonstrating help-seeking and help-rejecting behavior throughout his stay, however, this is largely improved at the time of discharge. Patient making good eye contact. Patient exhibiting narcissistic traits as well. No bizarre mannerisms or tics. SPEECH: Within normal limits, regular rate, rhythm volume and tone. MOOD: Described as okay. AFFECT: Mood congruent overall. THOUGHT PROCESSES: Logical, goal directed. Patient agreeing to instructions concerning outpatient suspended commitment. No loose associations or flight of ideas. THOUGHT CONTENT: Free of auditory or visual hallucinations, ideas of reference , thought broadcastings, delusions, obsessions, compulsions. Patient adamantly denying suicidal or homicidal ideation. SENSORIUM: Clear. COGNITION: Alert and oriented to person, place, time and situation. MEMORY: Immediate, recent and remote estimated intact. INTELLIGENCE: Historically average to above average based on previous knowledge of this patient. INSIGHT AND JUDGMENT: Considered grossly intact and appropriate for close observation through outpatient program at [facility] as well as with [facility] program, recent results in the absence of cannabis use, and patient would be taking medications as prescribed. RESULTS OF TESTING IMAGING: None. LABORATORY DATA: See above. CONSULTATIONS: None. TREATMENT Patient received medications, participated in individual and group therapy. HOSPITAL COURSE Patient overall cooperative throughout his stay. Again, help-seeking, help- rejecting behaviors were notable throughout patient's entire stay. Patient very needy of staff throughout stay as well. Patient exhibiting signs of psychological regression. CONDITION OF PATIENT ON DISCHARGE Stable. Considered minimal risk to himself or others and appropriate for outpatient care. DISPOSITION Patient discharged to home. He would follow up with [facility] staff and be monitored through the [facility] program on a suspended commitment to the [facility]. DISCHARGE MEDICATIONS 1. Vitamin D3, 4000 international units daily. 2. Clonazepam 1 mg every morning. 3. Clonazepam 2 mg at bedtime. Clonazepam would be followed and tapered on an outpatient basis. 4. Patient could take Natural Balance Tears over the counter as needed. 5. Colace 100 mg twice a day. 6. Patient would continue on gamma IgG Hizentra 50 g dose subcu every week. 7. Patient was started on Lamictal which was increased to 100 mg daily. This would be followed by outpatient provider for further increase. 8. Patient would remain on Synthroid 50 mcg daily. 9. [place] carbonate in the form of Lithobid extended release 900 mg at night. 10. Melatonin 9 mg at bedtime. 11. Multivitamin with minerals daily. 12. Patient would remain on Seroquel 500 mg at bedtime until this could be further evaluated by outpatient provider. Goal would be to further reduce antipsychotic medication in this patient who has a history of dyslipidemia. 13. Patient would remain on Fenofibrate 145 mg daily as well. 14. Patient would stop Flomax. 15. Patient would stop Prinivil. 16. Patient would stop hydrochlorothiazide as well. 17. Patient would remain on Vascepa until seen by outpatient provider. Patient does have a history of overdosing on Ativan. Medications will be monitored and placed in day box in limited quantities. Patient agreed to stop all cannabis use, was given the crisis line should symptoms return. Patient would take medications as prescribed and follow closely per outpatient suspended commitment to [facility] with [facility] and [facility] program. Risks, benefits and alternatives of the above discharge plan were discussed. Informed consent was given to proceed with above discharge plan by this competent patient, [facility] program and [facility] staff. SANA
== END 2017-09-19 09:39 | disposition home or self-care (01) | DRG 885 ==
LOC: BHS 16:10
PROVIDERS: ADMIT Nurse Practitioner Psychiatric/Mental Health; ATTEND Nurse Practitioner Psychiatric/Mental Health
DX: F31.60 Bipolar disorder, current episode mixed, unspecified (principal); R45.851 Suicidal ideations; D80.3 Selective deficiency of immunoglobulin G [IgG] subclasses; T42.4X2A Poisoning by benzodiazepines, intentional self-harm, initial encounter; F60.0 Paranoid personality disorder; F41.1 Generalized anxiety disorder; I10 Essential (primary) hypertension; E03.9 Hypothyroidism, unspecified; G47.00 Insomnia, unspecified; G47.33 Obstructive sleep apnea (adult) (pediatric); R63.4 Abnormal weight loss; F34.1 Dysthymic disorder; Z98.1 Arthrodesis status; Z86.14 Personal history of Methicillin resistant Staphylococcus aureus infection; Z91.5 Personal history of self-harm; Z73.89 Other problems related to life management difficulty; Z91.011 Allergy to milk products; Z88.8 Allergy status to other drugs, medicaments and biological substances; Z88.6 Allergy status to analgesic agent; Z88.1 Allergy status to other antibiotic agents; M19.90 Unspecified osteoarthritis, unspecified site; F60.9 Personality disorder, unspecified; F12.20 Cannabis dependence, uncomplicated
CPT/HCPCS: 36415; 80178; 80305; 80329; 80349; 81001; 82040; 82247; 82310; 82374; 82435; 82565; 82947; 83690; 84075; 84132; 84155; 84295; 84443; 84450; 84460; 84520; 85025; 99284

== ENCOUNTER → 2017-10-14 | Outpatient (CLI) | payer MEDICARE, MEDICAID ==
[2014-01-29 08:22] VITALS: BMI 31.3
[~2017-10-14] MED LIST changes: +CLON-1 PO; +DEXT15DR OU; +DOCU-416 PO; -FENO145T PO; +FENO145T36 PO; +LAMO100T56 PO; +LITH300T5 PO; +MELA3TAB31 PO; +QUET400T PO
== END ==
LOC: LAB 16:02
PROVIDERS: ATTEND Otolaryngology
DX: A49.01 Methicillin susceptible Staphylococcus aureus infection, unspecified site (principal)
CPT/HCPCS: 87071; 87077; 87186

== ENCOUNTER 2017-12-12 02:59 | Day surgery (SDC) | payer MEDICARE, MEDICAID ==
[2014-01-29 08:22] VITALS: Ht 180.3 cm; Wt 97.1 kg
[~2017-12-12] VITALS: Ht 180.3 cm; Wt 97.1 kg
[~2017-12-12 02:59] MED LIST changes: +CYAN10006 PO; +LAMO150T36 PO; +OMEG1CAP10 PO
[2017-12-12] MEDS ORDERED: fentaNYL CITR 100 MCG/2 ML AMP ONE ×3 (08:34→12:26)
[2017-12-12] MEDS ORDERED: ONDANSETRON 4 MG/2 ML VIAL ONE (08:46)
[2017-12-12] MEDS ORDERED: LIDOCAINE MPF 1% 5 ML VIAL ONE (08:46)
[2017-12-12] MEDS ORDERED: PROPOFOL EMUL(*) 10MG/ML 20 ML 20 ML ONE ×2 (08:46→11:46)
[2017-12-12 10:00] VITALS: BP 131/85
[2017-12-12] MEDS ORDERED: LIDOCAINE/SOD BICARB 8.4% SYR ID ONE (11:05)
[2017-12-12] MEDS ORDERED: CLINDAMYCIN(*) 600 MG/NS 50 ML 50 ML IVPB ONE (11:05)
[2017-12-12] MEDS ORDERED: NORMOSOL R SOLN(*) 1000 ML BAG 1,000 ML IV PRN (11:05)
[2017-12-12] MEDS ORDERED: FAMOTIDINE 20 MG TAB PO ONE (11:05)
[2017-12-12] MEDS ORDERED: BACITRACIN OINT 15 GM TUBE TP ONE (11:09)
[2017-12-12] MEDS ORDERED: LIDO/EPI 1% MDV 1:100,000 20ML INFIL ONE (11:09)
[2017-12-12] MEDS ORDERED: OXYMETAZOLINE SPRAY 15 ML BTL ONE (11:09)
[2017-12-12] MEDS ORDERED: MIDAZOLAM 2 MG/2 ML VIAL IVP PRN ×2 (11:30→11:35)
[2017-12-12] MEDS ORDERED: TRIAMCINOLONE ACE(*) 40 MG/ML 1 ML ONE (11:59)
[2017-12-12] MEDS ORDERED: HYDR-4309 PO (12:22)
[2017-12-12] MEDS ORDERED: DOXY-228 PO (12:23)
[2017-12-12] MEDS ORDERED: APAP/HYDROCODONE 325/5 TAB ONE (13:08)
[2017-12-12 13:09] VITALS: BP 138/85
[2017-12-12 13:34] VITALS: BP 135/81
[2017-12-12 13:35] VITALS: BP 140/80
--- NOTE | 2017-12-13 14:34 | OPERATIVE REPORT 1 ---
EVENT DATE: December 12, 2017 SURGEON: Suleman White MD ANESTHESIOLOGIST: Dylan Cox MD ANESTHESIA: LMA. PROCEDURE PERFORMED Right sinus debridement with removal of granulation tissue. PREOPERATIVE DIAGNOSIS Chronic sinusitis. POSTOPERATIVE DIAGNOSIS Chronic sinusitis. INDICATIONS Please refer to the preoperative note. DESCRIPTION OF PROCEDURE The patient was positively identified in the preoperative area. He was there alone. Risks again explained included, but were not limited to bleeding, infection, and those associated with anesthesia. He acknowledged understanding of those risks. He was then brought back to the operative suite, laid supine on the operative table, and anesthesia was administered. Once asleep, the patient was positioned and prepped and draped in the usual sterile fashion. Both nasal cavities were packed with cottonoids containing Afrin solution. These were subsequently removed. Nasal endoscopy was performed. On the left, this was notable for pink, healthy mucosa with widely patent maxillary and sphenoid ostia and a clear ethmoid cavity. I then introduced the endoscopy into the contralateral nasal cavity. This was notable for extensive mucus crusting. This was carefully removed. The patient was noted to have granulation tissue which appeared to be the nidus for this crust formation on the septal side and lateral nasal wall. This granulation tissue was debrided with a microdebrider. Kenalog 40, 1 mg was injected into the area from which the granulation tissue was emanating. A NasoPore dressing was placed. The patient was then turned to Anesthesia for emergence. Estimated blood loss 10 mL. No complications. MTDD
== END 2017-12-12 13:10 | disposition home or self-care (01) ==
LOC: OR 02:59
PROVIDERS: ATTEND Otolaryngology
DX: J32.9 Chronic sinusitis, unspecified (principal)
CPT/HCPCS: 31237; A9270; J2001; J2250; J2405; J2704; J3010; J3301; J3490

== ENCOUNTER → 2018-02-03 | Outpatient (CLI) | payer MEDICARE, MEDICAID ==
[2014-01-29 08:22] VITALS: BMI 31.3
[~2018-02-03] MED LIST changes: -CLON-298 PO; +CLON-331 PO; +DOXY-228 PO; +HYDR-4309 PO; +LURA20TA PO
== END ==
LOC: RESP 20:49
PROVIDERS: ATTEND Otolaryngology
DX: G47.33 Obstructive sleep apnea (adult) (pediatric) (principal)

== ENCOUNTER → 2018-03-28 | Outpatient (REF) | payer MEDICARE, MEDICAID ==
[2014-01-29 08:22] VITALS: BMI 31.3
== END ==
LOC: ZZSENDIN 12:00
PROVIDERS: ATTEND Urology
DX: N42.89 Other specified disorders of prostate (principal); N41.1 Chronic prostatitis; C61 Malignant neoplasm of prostate
CPT/HCPCS: 88305; 88344

== ENCOUNTER → 2018-04-11 | Outpatient (CLI) | payer MEDICARE, MEDICAID ==
[2014-01-29 08:22] VITALS: BMI 31.3
== END ==
LOC: LAB 15:52
PROVIDERS: ATTEND Otolaryngology
DX: J32.9 Chronic sinusitis, unspecified (principal)
CPT/HCPCS: 87071

== ENCOUNTER → 2018-04-17 | Outpatient (CLI) | payer MEDICARE, MEDICAID ==
[2014-01-29 08:22] VITALS: BMI 31.3
[2018-04-17 11:25] LABS: PLATELET COUNT, AUTOMATED 313 K/uL (150-450)
--- NOTE | 2018-04-17 14:59 | RADIOLOGY IMAGING REPORT ---
FACILITY: [facility] PATIENT NAME: Osvaldo Du : 1960 MR: [id number] V: [id number] EXAM DATE: ORDERING PHYSICIAN: PIERRE NORWOOD TECHNOLOGIST: Location: [facility] Patient: Osvaldo Du : 1960 Visit/Account:[id number] Date of Sevice: 04/17/2018 Exam type: CHEST PA AND LAT History: Prostate cancer, sleep apnea Comparison: May 20, 2014. Findings: The lungs are free of acute effusions, infiltrates or edema. There is no evidence of pneumothorax or pneumomediastinum. Cardiac silhouette is normal in size. There are spondylotic changes in the thor acic spine. IMPRESSION: 1. No acute cardiopulmonary process is seen Report Dictated By: Elizabeth Bojorquez MD at 04/17/2018 2:54 PM Report E-Signed By: Elizabeth Bojorquez MD at 04/17/2018 2:55 PM WSN:[email or web address]
== END ==
LOC: RAD 11:08
PROVIDERS: ATTEND Urology
DX: C61 Malignant neoplasm of prostate (principal)
CPT/HCPCS: 36415; 71046; 82040; 82247; 82248; 82310; 82374; 82435; 82565; 82947; 84075; 84132; 84155; 84295; 84450; 84460; 84520; 85025

== ENCOUNTER 2018-04-27 10:30 | Outpatient (RCR) | payer MEDICARE, MEDICAID ==
[2014-01-29 08:22] VITALS: BMI 31.3
--- NOTE | 2018-04-19 20:53 | ONCOLOGY CONSULTATION ---
EVENT DATE: April 18, 2018 DIAGNOSIS Adenocarcinoma of the prostate, [place] 6 tumor, identified on three core biopsies with ultrasound guidance. Tumor is predominantly in the left lobe of the prostate, 80% left lateral core biopsy, 25% of adjacent biopsy, and 5% of the left apex biopsy. Pre-biopsy prostate-specific antigen (PSA) was 4.4, which was last drawn on January 30, 2018. Stage tumor IC (T1c). HISTORY This is a 57-year-old gentleman who is referred to me by Dr. Camarillo to discuss therapeutic options for recently diagnosed prostate carcinoma. MEDICATIONS 1. Hizentra 20% solution weekly (IgG). 2. Lamictal. 3. Latuda. 4. Levothyroxine. 5. [place] carbonate. 6. Klonopin. 7. Cyanocobalamin. ALLERGIES CIPROFLOXACIN, CLARITHROMYCIN, CODEINE, DIAZEPAM, MORPHINE, PREDNISONE, TRAMADOL, MILK ALLERGY. MEDICAL HISTORY 1. Primary immune deficiency. 2. History of MRSA. 3. History of hypothyroidism. 4. History of arthritis. 5. Depression. 6. Chronic anxiety. 7. Atypical bipolar disorder. 8. Hypertension. 9. Sleep apnea. SURGICAL HISTORY 1. Cholecystectomy. 2. Sinus surgery. 3. Tonsillectomy. 4. Previous ankle surgery. FAMILY HISTORY Father at age 36 from alcoholism and [place]. Mother at age 58 from some form of malignancy. SOCIAL HISTORY Nonsmoker. Patient is disabled, . Rare alcohol use. REVIEW OF SYSTEMS Essentially negative. He had a slightly slowed stream earlier in the year which was improved with Flomax. No significant GI or complaints at this time. Denies any new or persistent bone pain. PHYSICAL EXAMINATION GENERAL: Pleasant 57-year-old male with moderate anxiety. VITAL SIGNS: Weight 238. Pulse 76, respirations 16, O2 sat 95% on room air, BP 159/80. LYMPHATIC: No lymphadenopathy. LUNGS: Clear bilaterally. HEART SOUNDS: Regular with audible murmur. ABDOMEN: No gross organomegaly. RECTAL: Induration in the peripheral zones of the left and right lobes of the prostate with no specific tenderness. There does appear to be some asymmetry of the gland. EXTREMITIES: No significant edema or cyanosis. IMPRESSION AND PLAN A 57-year-old gentleman with [place] 6 adenocarcinoma of the prostate, confirmed on three core biopsies. Options have been reviewed with the patient by Dr. Camarillo. I went over those options with the patient today specifically focused on prostate brachytherapy at the patient's request. The treatment involves an ultrasound mapping procedure with a catheter placement. Approximately three weeks later, the radioactive seeds are placed transperineally with the assistance of Urology. The half life of the seeds is 17 days, radiation dose of 11,000 cGy prescribed to the periphery of the gland and delivered over six to eight weeks. Tumor control probabilities are on the order of 90%, slightly higher is selective series. Potential side effects include dysuria, urinary frequency. Rare side effects would be rectal bleeding or hematuria, decreased sexual function of approximately 20%. All questions were answered to the patient's satisfaction over a 90-minute consultation today. He is interested in proceeding with the prostate brachytherapy, and we will coordinate the dates going forward with Dr. Camarillo's office. I would like to order a staging CT scan of the abdomen and pelvis in the next seven days with baseline blood work which will help us in determining the target volume. Thank you for the referral and opportunity to discuss options with this patient today. He appears to be well counseled. SANA
--- NOTE | 2018-04-19 21:17 | ONCOLOGY CONSULTATION ---
CONTINUATION OF CUT-OFF DICTATION MTDD
[~2018-04-27 10:30] MED LIST changes: +DEXTROSE 5%(*) 100 ML BAG 100 ML IVPB PRN; -HYDR-4309 PO; +HYDR-653 PO; -IOPAMIDOL 76% 75 ML INFUS BTL 75 ML ONE; +LIDOCAINE/SOD BICARB 8.4% SYR ID PRN; +NS(*) 0.9% 100 ML BAG 100 ML IVPB PRN
[2018-04-27 11:07] LABS: PLATELET COUNT, AUTOMATED 342 K/uL (150-450)
[2018-05-05] MEDS ORDERED: LEVO500T83 PO (16:50)
[2018-05-12] MEDS ORDERED: LURA60TA PO (09:07)
[2018-05-12] MEDS ORDERED: ICOS1CAP PO (09:09)
[2018-05-17] MEDS ORDERED: LEVO500T83 PO (11:40)
[2018-05-30] MEDS ORDERED: ESZ3PT PO (08:03)
[2018-06-01] MEDS ORDERED: PHEN200T32 PO (14:40)
[2018-06-01] MEDS ORDERED: OXYC-823 PO (14:41)
== END 2018-07-11 ==
LOC: SPU 10:30
PROVIDERS: ATTEND Radiology Radiation Oncology
DX: C61 Malignant neoplasm of prostate (principal)
CPT/HCPCS: 36415; 82040; 82247; 82310; 82374; 82435; 82565; 82947; 84075; 84132; 84153; 84155; 84295; 84450; 84460; 84520; 85025; 99202

== ENCOUNTER → 2018-04-27 | Outpatient (CLI) | payer MEDICARE, MEDICAID ==
[2014-01-29 08:22] VITALS: BMI 31.3
[~2018-04-27] MED LIST changes: +IOPAMIDOL 76% 75 ML INFUS BTL 75 ML ONE; +TAMS0.4C25 PO
--- NOTE | 2018-04-27 17:36 | RADIOLOGY IMAGING REPORT ---
[place]AC[place] [facility] [place]IENT NAME: Osvaldo Du : 1960 MR: [id number] V: [id number] EXAM DATE: ORDERING PHYSICIAN: ELI ALLEN TECHNOLOGIST: Location: [facility] [place] Patient: Osvaldo Du : 1960 Visit/Account:[id number] Date of Sevice: 04/27/2018 CHEST/AB/PELV W/CONTRAST EXAMINATION: CT chest /abdomen/pelvis with IV contrast. Additional Pertinent history: Diagnosed with prostate cancer one week ago. Back pain. One of the following dose optimization techniques was utilized in the performance of this exam: Autom ated exposure control; adjustment of the mA and/or kV according to the patient's size; or use of an i terative reconstruction technique. Specific details can be referenced in the facility's radiology C T exam operational policy. TECHNIQUE: Spiral scan was obtained through the chest/abdomen/pelvis during injection of nonionic i odinated intravenous contrast. Additional reconstructed sagittal and coronal scans obtained as well Contrast: 75 mL of Isovue-370 COMPARISON STUDIES: CT scan of the abdomen and pelvis from 12/25/2015.. FINDINGS: Lungs / pleura: Right lung There are no infiltrates or consolidations. There are several small nodul ar density seen in the right upper lung field (axial image 21, image 47, image 52, image 55, and imag e 81. Series 2) They range in size from 2 mm up to 8 mm. There are two small nodular densities in the left lower lung (image 81 and image 90) measuring three and 5 mm respectively. Some of the nodular densities in the right lung or fissural densities along t he right minor fissure. Mediastinum / karie: No mediastinal mass lesions. Heart / pericardium: negative Vessels: negative Musculoskeletal / Body wall: No osteolytic or blastic lesions seen. There is a well-circumscribed di minished attenuated lesion within the T C7 vertebral body measuring 1.2 cm in size with features cons istent with hemangioma. (Sagittal image 83.) No sclerotic or lytic lesions within the ribs. Sternu m unremarkable. Lymph node assessment: negative Lower neck: Small hypoattenuated lesions in the right lobe of the thyroid. These are 4 mm in size. Larger hypoattenuated lesion measuring 1 cm seen in the inferior aspect of the left gland. (Image 18 series 2) Liver / biliary: No liver lesions. Status post cholecystectomy Pancreas: negative Spleen: negative Adrenal glands: negative Kidneys / retroperitoneum: Stable appearing cyst within the left kidney. Pelvic structures: Prostate is enlarged measuring 5 cm. Bowel / peritoneum / mesenteries: Diverticulosis without evidence of diverticulitis. No colonic mass lesion. Vessels: negative Musculoskeletal / Body wall: negative there is subcutaneous air seen in the anterior abdominal wall e xtending from the level of the lower anterior chest down to the level of the mid splenic region. Minimal herniation of peroneal fat in the left inguinal region. No osteolytic or blastic lesions identified. There is a disc bulging change seen at the L2-3 level. Its appears to be slightly more conspicuous than the previous examination Lymph node assessment: There are scattered small right iliac chain lymph nodes largest measuring appr oximately 8 mm (image 596 series 3). There is to be similar in size to the previous examination. Se veral smaller lymph nodes are also seen. There are scattered inguinal lymph nodes overall similar in size on the right largest measuring approximately 1.2 cm in length. A left inguinal lymph node is s een measuring 1.7 cm (image 715 series 3) slightly larger than the previous lymph node measurement of 1.3 cm. IMPRESSION: 1. Scattered parenchymal lung nodules as described. These are likely postinflammatory. The largest of these lesions in the right lower lung measuring approximately 8 mm had a corresponding parenchyma l density measuring 7 mm and 2016. 2. No acute intra-abdominal pathology. No evidence of metastatic disease. Scattered lymph nodes wi th n the pelvis not appreciably different than the previous CT scan. 3. Thyroid nodules as described. Recommend ultrasound evaluation.4. Anterior abdominal subcutaneou s emphysematous changes uncertain significance. Recommend clinical correlation. 5. L2-L3 disc bulging change slightly more conspicuous than the previous examination. Report Dictated By: Jorge Alberto Weldon MD at 04/27/2018 4:40 PM Report E-Signed By: Jorge Alberto Weldon MD at 04/27/2018 5:32 PM WSN:[email or web address]
== END ==
LOC: CT 11:04
PROVIDERS: ATTEND Radiology Radiation Oncology
DX: R91.8 Other nonspecific abnormal finding of lung field (principal); E04.2 Nontoxic multinodular goiter
CPT/HCPCS: 71260; 74177; Q9967

== ENCOUNTER → 2018-05-04 | Outpatient (CLI) | payer MEDICARE, MEDICAID ==
[2014-01-29 08:22] VITALS: BMI 31.3
[~2018-05-04] MED LIST changes: -DEXTROSE 5%(*) 100 ML BAG 100 ML IVPB PRN; +HYDR-4309 PO; -HYDR-653 PO; +LEVO500T83 PO; -LIDOCAINE/SOD BICARB 8.4% SYR ID PRN; -NS(*) 0.9% 100 ML BAG 100 ML IVPB PRN
--- NOTE | 2018-05-04 11:53 | EKG ---
FACILITY: [facility] PATIENT NAME: AARON POSADAS : [id number] MR: [id number] V: [id number] EXAM DATE: ORDERING PHYSICIAN: CARRIE WREN TECHNOLOGIST: MICHEAL Pino Reason : PREOP Blood Pressure : / mmHG Vent. Rate : 070 BPM Atrial Rate : 070 BPM P-R Int : 200 ms QRS Dur : 114 ms QT Int : 406 ms P-R-T Axes : 022 -34 009 degrees QTc Int : 438 ms Normal sinus rhythm Left axis deviation Abnormal ECG No previous ECGs available Confirmed by OMARI DIAMOND ([id number]) on 05/04/2018 6:08:35 PM Referred By: SIENA Confirmed By:OMARI DIAMOND
== END ==
LOC: RESP 11:34
PROVIDERS: ATTEND Nurse Practitioner Family
DX: Z01.810 Encounter for preprocedural cardiovascular examination (principal); Z01.811 Encounter for preprocedural respiratory examination; R94.31 Abnormal electrocardiogram [ECG] [EKG]; C61 Malignant neoplasm of prostate
CPT/HCPCS: 93005

== ENCOUNTER 2018-05-15 01:49 | Day surgery (SDC) | payer MEDICARE, MEDICAID ==
[2014-01-29 08:22] VITALS: Ht 175.3 cm; Wt 99.3 kg
--- NOTE | 2018-05-12 13:34 | HISTORY AND PHYSICAL ---
DATE OF ADMISSION: May 15, 2018 CHIEF COMPLAINT Prostate cancer. HISTORY OF PRESENT ILLNESS The patient is a 57-year-old white male who was referred to the urology clinic by RAVEN Alicia for an elevated PSA up to 4.4. He subsequently underwent prostatic biopsy on the 28 of March which revealed 3+3=6 adenocarcinoma in 3 of the 12 cores on the left side with a maximum 80% core. His prostatic volume was 34 cc which led him to have a PSA density of 0.013. Treatment options were discussed with the patient including active surveillance, radical retropubic prostatectomy, external beam treatment and/or brachytherapy. He sought evaluation with Dr. Langley of Radiation Oncology and has elected to undergo primary brachytherapy treatment. He is therefore being brought to the operating room at this time for prostatic mapping in anticipation for brachytherapy planning. PAST MEDICAL HISTORY * Bipolar and depression. * Hypertension. * Gastroesophageal reflux disease with irritable bowel syndrome. * Obstructive sleep apnea. * Hypercholesterolemia. * Common variable primary immunodeficiency. * History of MRSA. PAST SURGICAL HISTORY * Cholecystectomy. * Sinus surgery 04/26. * Ankle. * Tonsillectomy. * Laminar discectomy. ALLERGIES CODEINE questionable MORPHINE questionable [place] 2 INHIBITORS ULTRAM CURRENT MEDICATIONS * Vitamin D * Klonopin * Vitamin B * Fenofibrate * IGG replacement with Hizentra * Vascepa * Lamictal * Levothyroxine * [place] * Latuda * Flomax SOCIAL HISTORY The patient lives in [place], [place]. He is retired and has not smoked and is . FAMILY HISTORY Noncontributory. REVIEW OF SYSTEMS The patient denies chest pain, productive cough, fever, chills, nausea, vomiting, gross hematuria, change in weight, liver disease or bleeding disorder. PHYSICAL EXAMINATION GENERAL: The patient is a well developed, well nourished white male in no acute distress. HEENT: Normocephalic, atraumatic. LUNGS: Clear to auscultation bilaterally. CV: Regular rate and rhythm. ABDOMEN: Soft, nontender, no masses are palpated. : Deferred to the OR. EXTREMITIES: Without clubbing, cyanosis, or edema. NEURO: Nonfocal. IMPRESSION This is a 57-year-old white male with a localized 3+3=6 adenocarcinoma who has elected to undergo brachytherapy treatment. PLAN We will perform transrectal step section ultrasound mapping of prostate in anticipation for brachytherapy treatment. [facility]
[~2018-05-15] VITALS: Ht 175.3 cm; Wt 99.3 kg
[~2018-05-15 01:49] MED LIST changes: -HYDR-4309 PO; +HYDR-653 PO
[2018-05-15] MEDS ORDERED: ceFAZolin(*) 1 GM VIAL 1 GM in NS(*) 0.9% 100 ML ADDVANT BAG 100 ML IVPB ONE (07:55)
[2018-05-15] MEDS ORDERED: MIDAZOLAM 2 MG/2 ML VIAL IVP PRN (07:55)
[2018-05-15] MEDS ORDERED: NORMOSOL R SOLN(*) 1000 ML BAG 1,000 ML IV PRN (07:55)
[2018-05-15] MEDS ORDERED: FAMOTIDINE 20 MG TAB PO ONE (07:55)
[2018-05-15] MEDS ORDERED: LIDOCAINE/SOD BICARB 8.4% SYR ID ONE (07:55)
[2018-05-15] MEDS ORDERED: ONDANSETRON 4 MG/2 ML VIAL ONE (08:04)
[2018-05-15] MEDS ORDERED: DEXAMETHASONE SOD 4 MG/ML VIAL ONE (08:04)
[2018-05-15] MEDS ORDERED: METOCLOPRAMIDE 10 MG/2 ML SDV ONE (08:04)
[2018-05-15] MEDS ORDERED: LIDOCAINE MPF 1% 5 ML VIAL ONE (08:04)
[2018-05-15] MEDS ORDERED: PROPOFOL EMUL(*) 10MG/ML 20 ML 20 ML ONE (08:04)
[2018-05-15] MEDS ORDERED: fentaNYL CITR 100 MCG/2 ML AMP ONE ×2 (08:06→11:09)
[2018-05-15 08:43] VITALS: BP 119/72
[2018-05-15] MEDS ORDERED: ROCURONIUM BROM 10 MG/ML 5 ML ONE (10:00)
[2018-05-15 11:55] VITALS: BP 130/87
[2018-05-15 12:00] VITALS: BP 125/87
[2018-05-15 12:07] VITALS: BP 127/81
[2018-05-15 12:10] VITALS: BP 134/98
--- NOTE | 2018-05-15 13:32 | OPERATIVE REPORT 1 ---
EVENT DATE: May 15, 2018 SURGEON: Cristo Camarillo MD ANESTHESIOLOGIST: Aidan Clayton MD ANESTHESIA: General PREOPERATIVE DIAGNOSIS Prostate cancer. POSTOPERATIVE DIAGNOSIS Prostate cancer. PROCEDURE PERFORMED Transrectal ultrasound step-section mapping of prostate for brachytherapy planning. ESTIMATED BLOOD LOSS Minimal. IV FLUIDS Crystalloid. DRAINS None. COMPLICATIONS None. CONDITION The patient was taken to the recovery room awake and in stable condition. STATEMENT OF MEDICAL NECESSITY The patient is a 57-year-old white male who was referred to the urology clinic for elevated PSA by RAVEN Alicia and was found to have a localized prostate cancer. He has elected to undergo primary brachytherapy treatment under the direction of Dr. Langley and now is being brought to the operating room for planned brachytherapy step-section mapping in anticipation for brachytherapy planning. DESCRIPTION OF PROCEDURE The patient was brought to the operating room and after general anesthetic was obtained, he was placed in the dorsal lithotomy position using the Yellofin stirrups. His position was recorded to be reproduced in brachytherapy treatment. He was prepped and draped sterilely and a Holly catheter was placed. His rectum was filled with transducer jelly. The ultrasound probe was introduced into the patient's rectum atraumatically using the stabilizer. Realtime ultrasound of the prostate was performed in two planes. The 5 mm grid system was used. The prostate was centered on the grid system and then step- section was then performed starting at the base proceeding out to the apex in 5 mm increments. At each step, the outline of the prostate was drawn with the cursor to calculate the area. A total of eight step-sections were performed to give a total volume of 39.7 cc. Following this, the transducer was turned perpendicularly and the length from the base and apex was measured at 32 mm. At this point, the off-set balloon was deflated and the ultrasound probe removed from the patient's rectum atraumatically. His Holly catheter was removed. He was awakened in the operating room and taken to the recovery area in stable condition. PLAN The plan will be to allow the patient to be discharged home today. He will return to the clinic in a few weeks to proceed with brachytherapy under the direction of Dr. Langley. [facility]
== END 2018-05-15 11:55 | disposition home or self-care (01) ==
LOC: OR 01:49
PROVIDERS: ATTEND Urology
DX: C61 Malignant neoplasm of prostate (principal)
CPT/HCPCS: 36415; 76873; 80178; 81001; 84153; 87088; A9270; J0690; J2001; J2405; J2704; J3010; J7050; J1100; J2765

== ENCOUNTER 2018-06-01 01:58 | Day surgery (SDC) | payer MEDICARE, MEDICAID ==
[2014-01-29 08:22] VITALS: Ht 175.3 cm; Wt 98.0 kg
--- NOTE | 2018-05-30 13:12 | ONCOLOGY HISTORY AND PHYSICAL ---
EVENT DATE: June 01, 2018 CHIEF COMPLAINT Patient is being seen for preoperative history and physical. Recent diagnosis of [place] 6 adenocarcinoma of the prostate. Patient consented for Palladium- 103 seed brachytherapy today. Procedure is scheduled for June 01, [address] Camarillo. HISTORY OF PRESENT ILLNESS Patient was recently diagnosed with [place] 6 adenocarcinoma of the prostate. The tumor occupies 80% of the left lateral core biopsy, 25% of adjacent biopsy and 15% of left apex biopsy. Initial PSA was 4.5 ng/mL on January 30, 2018. His baseline PSA is actually closer to 7.2 ng/mL, which was obtained on May 12, 2018. Metabolic panel and CBC were normal on April 27, 2018. CCUA was negative for bacteria. There were a few WBC's and I elected to place him on Bactrim as a precaution this week due to his history of immune deficiency. He denies any fevers, chills or dysuria. Baseline nocturia x1, voids every two to three hours during the day. Denies any new or persistent bone pain. Patient has extensively reviewed therapeutic options and elected to proceed with the prostate brachytherapy option. MEDICATIONS 1. Hizentra IgG infusions weekly. 2. Lamictal. 3. Latuda. 4. Levothyroxine. 5. [place] carbonate. 6. Lunesta p.r.n. insomnia. ALLERGIES CIPROFLOXACIN, CLARITHROMYCIN, CODEINE, DIAZEPAM, MORPHINE, PREDNISONE, TRAMADOL. Also, there is a food allergy of MILK. PAST MEDICAL HISTORY 1. Primary immune deficiency. 2. History of MRSA. 3. History of prostate carcinoma. 4. History of hypothyroidism. 5. History of DJD. 6. History of depression. 7. Anxiety. 8. Atypical bipolar disorder. 9. Hypertension. 10. Sleep apnea. 11. Chronic insomnia. PAST SURGICAL HISTORY 1. Cholecystectomy. 2. Tonsillectomy. 3. Previous ankle surgery. SOCIAL HISTORY [*] FAMILY HISTORY Father at age 36 from alcoholism and [place]. Mother in her late 50's from some of malignancy. SOCIAL HISTORY Nonsmoker. Patient is disabled, . REVIEW OF SYSTEMS Essentially negative. Occasional stiffness in his ankle. He does have chronic insomnia and history of chronic anxiety, recently tapered off clonazepam completely per his provider's instructions. PHYSICAL EXAMINATION GENERAL: Pleasant and inquisitive 57-year-old male of medium build. VITAL SIGNS: BP 136/85, pulse 81, respirations 16, O2 sat 95% on room air, height 69 inches, weight 224 LUNGS: Clear bilaterally. CARDIOVASCULAR: Heart sounds are regular. ABDOMEN: Soft. No gross organomegaly. EXTREMITIES: No edema or cyanosis. NEURO: Intact. IMPRESSION AND PLAN Patient is a 57-year-old gentleman with [place] 6 adenocarcinoma of the prostate. He has reviewed therapeutic options for cancer management and would like to proceed with seed implant procedure with Dr. Camarillo. I went through the details of acute late side effects and therapeutic alternatives. He consents for treatment. He has watched several videos on the internet and asked appropriate questions. He will have CT through the pelvis in late June for final computer dosimetry and repeat PSA at that time. I elected to hold any hormone therapy at this time as the patient would like to remain sexually active if possible. Therefore, his PSA should fall gradually over a course of 6 to 12 months following treatment. All questions were answered to his satisfaction over a one hour appointment this morning. SANA
[~2018-06-01] VITALS: Ht 175.3 cm; Wt 98.0 kg
[~2018-06-01 01:58] MED LIST changes: +ESZ3PT PO
[2018-06-01] MEDS ORDERED: IOTHALAMATE MEGLU 172MG/ML BTL 250 ML IVPB ONE (08:23)
[2018-06-01 10:40] VITALS: BP 114/77
[2018-06-01] MEDS ORDERED: ceFAZolin(*) 1 GM VIAL 1 GM in NS(*) 0.9% 100 ML ADDVANT BAG 100 ML IV ONE (10:45)
[2018-06-01] MEDS ORDERED: FAMOTIDINE 20 MG TAB PO ONE (10:45)
[2018-06-01] MEDS ORDERED: NORMOSOL R SOLN(*) 1000 ML BAG 1,000 ML IV PRN (10:45)
[2018-06-01] MEDS ORDERED: MIDAZOLAM 2 MG/2 ML VIAL IVP PRN (10:45)
[2018-06-01] MEDS ORDERED: ceFAZolin 1 GM VIAL IVP ONE (10:45)
[2018-06-01] MEDS ORDERED: LIDOCAINE/SOD BICARB 8.4% SYR ID ONE (10:45)
[2018-06-01] MEDS ORDERED: fentaNYL CITR 100 MCG/2 ML AMP ONE ×3 (12:21→13:49)
[2018-06-01] MEDS ORDERED: PROPOFOL EMUL(*) 10MG/ML 20 ML 20 ML ONE (12:21)
[2018-06-01] MEDS ORDERED: ONDANSETRON 4 MG/2 ML VIAL ONE (12:21)
[2018-06-01 14:21] VITALS: BP 134/82
[2018-06-01 14:27] VITALS: BP 131/91
[2018-06-01 14:28] VITALS: BP 129/84
[2018-06-01] MEDS ORDERED: PHEN200T32 PO (14:40)
[2018-06-01] MEDS ORDERED: OXYC-823 PO (14:41)
--- NOTE | 2018-06-01 15:13 | OPERATIVE REPORT 1 ---
EVENT DATE: June 01, 2018 SURGEON: Cristo Camarillo MD ANESTHESIOLOGIST: Allen Winter MD ANESTHESIA: General. [employer] BOOK WRITER: Spike Langley MD PREOPERATIVE DIAGNOSIS Prostate cancer. POSTOPERATIVE DIAGNOSIS Prostate cancer. PROCEDURES PERFORMED 1. Transrectal ultrasound-guided transperineal prostate needle placement for brachytherapy. 2. Flexible cystoscopy. ESTIMATED BLOOD LOSS 5 mL INTRAVENOUS FLUIDS Crystalloids. DRAINS 16-Brazilian coude Holly catheter. PATHOLOGY None. COMPLICATIONS None. CONDITION Patient taken to the recovery room awake and in stable condition. STATEMENT OF MEDICAL NECESSITY Patient is a 57-year-old white male who was noted to have a 3 + 3 = 6 adenocarcinoma in three of 12 cores on the left side of his prostate with a maximum core of 80% with a PSA of 4.4. After a discussion with Dr. Langley of Radiation Oncology, he has elected to undergo primary brachytherapy treatment. He is now being brought to the operating room for above planned procedure. DESCRIPTION OF PROCEDURE PERFORMED Patient was brought to the operating room. After general anesthetic was obtained, he was placed in the dorsal lithotomy position using the Yellofin stirrups in the position that was prerecorded from his mapping procedure. He was prepped and draped sterilely. A scrotal stay stitch was placed to provide exposure to the perineum. A 16-Brazilian Holly catheter with dilute contrast in the balloon and in the bladder was placed with the drainage port plugged. Transducer gel was placed in the patient's rectum. The ultrasound probe was placed in the cradle of the stabilizer and introduced into the patient's rectum atraumatically. Real-time ultrasound of the prostate was performed using the 5 mm grid. Both sagittal and transverse planes were used. The prostatic image was centered on the ultrasound screen. Then, the base and apex were marked with fluoroscopic imaging. At this point, I placed a total of 26 needles transperineal under ultrasound guidance into the prostate in a preplanned urethral spring technique under the direction of Dr. Langley. Following placement of the needles, the depth was checked in the both sagittal and transverse planes. Dr. Langley then proceeded to drop a total of 101 seeds as he removed the 26 needles. Following this, I performed a flexible cystoscopy which revealed a normal-appearing urethra without evidence of lesions or active bleeding. The prostate also appeared normal without evidence of tumor, active bleeding, or foreign bodies. He had no significant median lobe. The scope was removed. A 16-Brazilian Holly catheter was placed with 10 mL of water in the balloon. This was placed to gravity drainage. The scrotal stay stitch was removed. The offset balloon on the ultrasound was deflated and the ultrasound probe removed from the patient's rectum. He was taken down from dorsal lithotomy position, awakened in the operating room, and taken to the recovery area in stable condition. SANA
--- NOTE | 2018-06-01 15:42 | OPERATIVE REPORT 1 ---
EVENT DATE: June 01, 2018 SURGEON: Spike Langley MD/Cristo Camarillo MD ANESTHESIOLOGIST: Allen Winter MD ANESTHESIA: General. PREOPERATIVE DIAGNOSIS Adenocarcinoma of the prostate. POSTOPERATIVE DIAGNOSIS Adenocarcinoma of the prostate. PROCEDURE PERFORMED Intraoperative placement of palladium 103 seeds with ultrasound fluoroscopy guidance. DESCRIPTION OF PROCEDURE Patient was brought to the OR suite and placed under general anesthesia. Perineum was prepped in a sterile fashion. A Holly catheter was placed into the bladder. Contrast was placed in the Holly balloon. Endorectal ultrasound was placed into the rectum with good visualization of the prostate with sagittal and transverse imaging. A total of 26 needles were placed into the prostate with direct visualization by Dr. Camarilol according to the preplan and using the ultrasound images for guidance. After all needles were in satisfactory position, I entered the operative field and placed the palladium 103 seeds. A total of 101 radioactive seeds was placed in the prostate using direct visualization using C-arm fluoroscopy. No complications were encountered. Dr. Camarillo re-entered the operative field and performed a cystoscopy at the end of the procedure. The patient was transferred to the recovery room in stable condition. SANA
--- NOTE | 2018-06-01 16:31 | RADIOLOGY IMAGING REPORT ---
FACILITY: [facility] PATIENT NAME: Osvaldo Du : 1960 MR: [id number] V: [id number] EXAM DATE: ORDERING PHYSICIAN: PIERRE NORWOOD TECHNOLOGIST: Location: [facility] - [place], [place] Patient: Osvaldo Du : 1960 Visit/Account:[id number] Date of Sevice: 06/01/2018 Examination: C-arm fluoroscopy-intraoperative HISTORY: Prostate seed implant placement. FINDINGS: Single intraoperative fluoroscopic spot image is obtained of the low pelvis. Instrument is in place overlying the midline. Multiple prostate radiation seed implants have been placed. 174.8 sec onds of fluoroscopy time was used. IMPRESSION: 1. Limited intraoperative image with findings as above. Report Dictated By: Jordon Ivan at 06/01/2018 4:25 PM Report E-Signed By: Jordon Ivan at 06/01/2018 4:27 PM WSN:[email or web address]
== END 2018-06-01 14:21 | disposition home or self-care (01) ==
LOC: OR 01:58
PROVIDERS: ATTEND Radiology Radiation Oncology
DX: C61 Malignant neoplasm of prostate (principal)
CPT/HCPCS: 36415; 55876; 76000; 76942; 80178; A9270; C2640; J0690; J2405; J2704; J3010; Q9958

== ENCOUNTER 2018-07-11 09:40 | Outpatient (RCR) | payer MEDICARE, MEDICAID ==
[2014-01-29 08:22] VITALS: BMI 31.3
[~2018-07-11 09:40] MED LIST changes: +OXYC-823 PO; +PHEN200T32 PO
[2018-07-11 10:10] LABS: PLATELET COUNT, AUTOMATED 352 K/uL (150-450)
--- NOTE | 2018-07-11 12:05 | RADIOLOGY IMAGING REPORT ---
FACILITY: [facility] [place] PATIENT NAME: Osvaldo Du : 1960 MR: [id number] V: [id number] EXAM DATE: ORDERING PHYSICIAN: ELI ALLEN TECHNOLOGIST: Location: [facility] Patient: Osvaldo Du : 1960 Visit/Account:[id number] Date of Sevice: 07/11/2018 ABDOMEN/PELVIS W/O CONTRAST HISTORY: Prostate cancer, postseed implant TECHNIQUE: Axial images acquired through the abdomen/pelvis. Coronal and sagittal reformatting also performed. No IV contrast administered.Dose Lowering Technique One of the following dose optimization techniques was utilized in the performance of this exam: Autom ated exposure control; adjustment of the mA and/or kV according to the patient's size; or use of an i terative reconstruction technique. Specific details can be referenced in the facility's radiology C T exam operational policy. COMPARISON: CT chest abdomen pelvis April 27, 2018 FINDINGS: Visualized lung bases: 9 mm triangular shaped nodular density in the right lung base has remained st able since December 25, 2015 and is best seen on image 37 of series 3 Hepatobiliary: There are postsurgical changes from a cholecystectomy Spleen: Negative. Adrenals: There is mild thickening of the left adrenal gland that remain stable Pancreas: Negative. Kidneys ureters and bladder: Kidneys appear unremarkable. There is mild thickening of the floor the bladder Genitalia: Numerous brachytherapy seeds are seen within the prostate gland. The Seminal vesicles ap pear prominent GI: There is diverticulosis left-sided colon although no CT evidence of acute diverticulitis. Vessels/spaces/nodes: Just medial to the greater curvature the stomach there is a 4 x 2.4 x 2.8 cm o void mass containing several coarse calcifications this appears unchanged in size on CT dating back t o December 25, 2015 possibly a calcified blu mass or other mesenteric mass. Bones/soft tissues: There are mild infiltrative changes seen in the subcutaneous fat along the anter ior abdominal wall above the level the umbilicus. Cutaneous air is also present. Subcutaneous air w as present on the prior CT as well which may be related to subcutaneous injections . There is a left inguinal hernia containing fat. There are spondylotic changes the lumbar spine. No aggressive appearing bone lesions are seen Additional findings: None pertinent. IMPRESSION: There are numerous brachytherapy seeds seen within the prostate gland. The seminal vesicles appear p rominent. This mild thickening of the bladder floor Diverticulosis left-sided colon There is a 4 x 2.4 x 2.8 cm ovoid mass containing several coarse calcifications just medial to the gr eater curvature the stomach although this appears unchanged when compared to prior CT dating back to December 25, 2015. This may represent a calcified blu mass or other mesenteric mass however stable Additional chronic findings as described Report Dictated By: Elizabeth Bojorquez MD at 07/11/2018 11:29 AM Report E-Signed By: Elizabeth Bojorquez MD at 07/11/2018 12:00 PM WSN:[id number]
== END 2018-07-26 ==
LOC: LAB 09:40
PROVIDERS: ATTEND Radiology Radiation Oncology
DX: C61 Malignant neoplasm of prostate (principal); K57.90 Diverticulosis of intestine, part unspecified, without perforation or abscess without bleeding
CPT/HCPCS: 36415; 74176; 82040; 82247; 82310; 82374; 82435; 82565; 82947; 84075; 84132; 84153; 84155; 84295; 84450; 84460; 84520; 85025

== ENCOUNTER 2018-07-11 15:55 | Outpatient (RCR) | payer MEDICARE, MEDICAID ==
[2014-01-29 08:22] VITALS: BMI 31.3
--- NOTE | 2018-07-11 22:50 | ONCOLOGY FOLLOW UP NOTE ---
EVENT DATE: July 11, 2018 CHIEF COMPLAINT/REASON FOR VISIT Patient has a history of prostate carcinoma and underwent palladium 103 seed implant on 06/01/[address] Camarillo, seen for a followup appointment today. ONCOLOGY HISTORY 1. [place] 6 high-volume adenocarcinoma of the prostate. Tumor occupied 80% of the left lateral core biopsy, 25% of the adjacent biopsy, and 15% of the left apex biopsy. Pretreatment PSA 7.2 ng/mL on 04/12/18. 2. Patient undergoing palladium 103 seed brachytherapy on 06/01/18 at [facility]. 3. PSA has fallen to 1.6 ng/mL. INTERVAL HISTORY/HISTORY OF PRESENT ILLNESS Mr. Du was seen back in the Oncology Clinic for a followup appointment. Earlier today, he had a CT scan of the abdomen and pelvis with localization of the brachytherapy seeds for final computer dosimetry. The patient has no significant voiding complaints. He generally gets up once or twice at night. His main complaint this last month has been insomnia. Apparently, he has intermittent episodes of severe insomnia. He did have loose bowels about two weeks after the radiotherapy course and was started on Lomotil by his other providers, and surprisingly, this helped with both his insomnia as well as regulated his bowels. He has taken two to six tablets a day depending on symptoms. He ran out of the prescription, and a refill will be provided today. Patient has an appointment to see Suad Yu CMP, for primary medical needs particularly in regards to his insomnia in the morning. Patient denies any bone pain. Good energy level overall. No erectile dysfunction following treatment. MEDICATIONS 1. Hizentra 20% solution weekly (IgG). 2. Lamictal. 3. Latuda. 4. Levothyroxine. 5. [place] carbonate. 6. Klonopin. 7. Cyanocobalamin. ALLERGIES CIPROFLOXACIN, CLARITHROMYCIN, CODEINE, DIAZEPAM, MORPHINE, PREDNISONE, TRAMADOL, MILK ALLERGY. MEDICAL HISTORY 1. Primary immune deficiency. 2. History of MRSA. 3. History of hypothyroidism. 4. History of arthritis. 5. Depression. 6. Chronic anxiety. 7. Atypical bipolar disorder. 8. Hypertension. 9. Sleep apnea. SURGICAL HISTORY 1. Cholecystectomy. 2. Sinus surgery. 3. Tonsillectomy. 4. Previous ankle surgery. FAMILY HISTORY Father at age 36 from alcoholism and [place]. Mother at age 58 from some form of malignancy. SOCIAL HISTORY Nonsmoker. Patient is disabled, . Rare alcohol use. PHYSICAL EXAMINATION VITAL SIGNS: BP 133/76, pulse 76, respirations 16, O2 sat 94%. Weight 226. HEENT: Unremarkable. LUNGS: Clear. HEART SOUNDS: Regular. ABDOMEN: No gross organomegaly. RECTAL: Deferred due to recent procedure. IMPRESSION Patient has responded very well to the brachytherapy. In fact, I am very surprised at how far the PSA has fallen within four weeks of the procedure. No voiding issues at this time. He is very happy with his treatment selection. PLAN I renewed his prescription for Lomotil, taking two tablets after each loose bowel movement up to six per day, #40. I also asked the patient to try Citrucel for the next seven to 14 days to regulate the bowels and add more fiber, which helps to bulk up the stools so to speak. If unsuccessful, he will try fiber bars. Patient was instructed to follow up with Dr. Camarillo in three months with PSA and return to this clinic in six months. If his PSA is stable at that time, we may go out to q.6-month visits. We will know the yannick following treatment within the next 12 months. Radiographic images were reviewed. SANA
== END 2018-08-14 ==
LOC: RAON 15:55
PROVIDERS: ATTEND Radiology Radiation Oncology
DX: Z51.0 Encounter for antineoplastic radiation therapy (principal); C61 Malignant neoplasm of prostate
CPT/HCPCS: 77295; 77300; 77470; G0463; 77332; 77790; 99212

== ENCOUNTER → 2018-08-08 | Outpatient (CLI) | payer MEDICARE, MEDICAID ==
[2014-01-29 08:22] VITALS: BMI 31.3
== END ==
LOC: LAB 16:11
PROVIDERS: ATTEND Otolaryngology
DX: J32.0 Chronic maxillary sinusitis (principal); A49.01 Methicillin susceptible Staphylococcus aureus infection, unspecified site
CPT/HCPCS: 87071; 87077; 87186

== ENCOUNTER 2018-08-28 06:58 | Outpatient (RCR) | payer MEDICARE, MEDICAID ==
[2014-01-29 08:22] VITALS: BMI 31.3
== END 2018-08-28 16:39 | disposition home or self-care (01) ==
LOC: RAON 06:58
PROVIDERS: ATTEND Radiology Radiation Oncology
DX: Z51.0 Encounter for antineoplastic radiation therapy (principal); C61 Malignant neoplasm of prostate

== ENCOUNTER → 2018-09-29 | Outpatient (CLI) | payer MEDICARE, MEDICAID ==
[2014-01-29 08:22] VITALS: BMI 31.3
== END ==
LOC: LAB 15:40
PROVIDERS: ATTEND Otolaryngology
DX: J32.4 Chronic pansinusitis (principal); B95.7 Other staphylococcus as the cause of diseases classified elsewhere
CPT/HCPCS: 87071; 87077; 87186

== ENCOUNTER → 2018-12-15 | Outpatient (CLI) | payer MEDICARE, MEDICAID ==
[2014-01-29 08:22] VITALS: BMI 31.3
[~2018-12-15] MED LIST changes: +SULF-198 PO
== END ==
LOC: LAB 14:41
PROVIDERS: ATTEND Otolaryngology
DX: J32.0 Chronic maxillary sinusitis (principal)
CPT/HCPCS: 87071; 87077; 87186

== ENCOUNTER 2018-12-26 12:53 | Outpatient (RCR) | payer MEDICARE, MEDICAID ==
[2014-01-29 08:22] VITALS: Wt 104.9 kg
[2018-12-26 13:03] VITALS: BP 133/84
[2018-12-26] MEDS ORDERED: BREX0.5T PO (13:07)
--- NOTE | 2018-12-26 23:44 | ONCOLOGY FOLLOW UP NOTE ---
EVENT DATE: December 26, 2018 CHIEF COMPLAINT/REASON FOR OFFICE VISIT Known history of prostate carcinoma, prior prostate brachytherapy. Patient is here to review updated laboratory studies. ONCOLOGY HISTORY [place] 3 + 3 = 6 adenocarcinoma of the prostate involved in three of 12 core biopsies from the left side, largest core biopsy 80%. Elevated PSA of 4.4 ng/mL. TREATMENT HISTORY Patient underwent prostate brachytherapy 06/01/18 with procedure jointly performed with Dr. Camarillo. INTERVAL HISTORY This is a patient who is well known to me. He is a 58-year-old gentleman with diagnosis of prostate carcinoma in 2018 and elevation of the PSA, which necessitated biopsy. His highest PSA prior to treatment was actually 7.2 ng/mL on 04/12/18. The patient discussed treatment options with me and elected to have the prostate brachytherapy, which was performed jointly with Dr. Camarillo on 06/01/18 at [facility]. Following treatment, the PSA has progressively fallen. His PSA was 1.6 ng/mL in June. The more recent PSA values have now dropped to 0.6 ng/mL. The last specimen was drawn on 12/25/18. This is an excellent therapeutic response with our target value of zero to 2.0 ng/mL. Patient states that the bowels are fairly normal. He does have a history of significant bowel issues and was recently switched from Abilify to Rexulti to determine if this would stabilize his bowel function. He is utilizing this with his other medications for his psychosis disorder. He informs me that he is going to [facility] and does telemedicine every six weeks with a DIRECTOR OF ADULT EPILEPSY in [place]. Locally, he sees Suad Yu for primary medical needs and has an appointment next month. He is seeing Dr. Camarillo on an alternating basis with me every three months for the first year. MEDICATIONS 1. Rexulti. 2. Vitamin D3. 3. Vitamin B12. 4. Fenofibrate. 5. Vascepa. 6. Hizentra. 7. Levothyroxine. 8. [place]. 9. Bactrim DS. ALLERGIES Unchanged; CIPROFLOXACIN, CLARITHROMYCIN, CODEINE, DIAZEPAM, MILK, MORPHINE, PREDNISONE, TRAMADOL, STEROIDS. PAST MEDICAL HISTORY 1. Primary immune deficiency. 2. History of MRSA. 3. History of hypothyroidism. 4. History of arthritis. 5. Depression. 6. Chronic anxiety. 7. Atypical bipolar disorder. 8. Hypertension. 9. Sleep apnea. PAST SURGICAL HISTORY 1. Cholecystectomy. 2. Sinus surgery. 3. Tonsillectomy. 4. Previous ankle surgery. FAMILY HISTORY Father at age 36 from alcoholism and [place]. Mother at age 58 from some form of malignancy. SOCIAL HISTORY Nonsmoker. Patient is disabled, . Rare alcohol use. COMPREHENSIVE REVIEW OF SYSTEMS Notable for chronic insomnia. Denies any bone pain. Does have intermittently loose bowels unrelated to prior prostate brachytherapy in my opinion. No rectal bleeding. Nocturia times one. PHYSICAL EXAMINATION GENERAL: Pleasant 58-year-old male, medium to large build. VITAL SIGNS: Weight 231. Height 5 feet 9 inches. BP 133/84, pulse 60, respirations 16, O2 sat 96% on room air. LYMPHATICS: No peripheral lymphadenopathy. LUNGS: Clear to auscultation bilaterally. HEART: Sounds regular. ABDOMEN: Soft. No gross organomegaly. RECTAL: Deferred due to subnormal PSA. NEUROLOGIC: Grossly intact. IMPRESSION This is a 58-year-old gentleman who was diagnosed with [place] 6 adenocarcinoma of the prostate in 2018. He elected to have prostate brachytherapy, which was administered in May [address] Camarillo with ultrasound and fluoroscopic guidance. Prior to the brachytherapy procedure, his PSA was 7.2 ng/mL, and then the PSA dropped rapidly to 1.6 ng/mL by June. The last two values are now stable at 0.6 ng/mL. PLAN I have reassured the patient that he is at the target value of zero to 2.0 ng/mL at this juncture. I am pleased with his course to date. I would expect the PSA yannick to be somewhere at this level, and there can be some minor fluctuations over the first year or two, which are normal. We did not need to add external beam radiation therapy in his case, although that remains an option in the future should he have any evidence of tumor recurrence or progression. Alternative therapies may be available in the future as well, however. All questions were answered to the patient's satisfaction over a 40-minute appointment, of which 35 minutes were spent face to face with the patient today. He will see Dr. Camarillo in three months and myself in six months with an updated PSA. I will then go an annual followup appointment after that next visit if his numbers continue to be this stable. [facility]HELLE HOSPITALXavier
== END 2019-01-22 13:47 | disposition home or self-care (01) ==
LOC: RAON 12:53
PROVIDERS: ATTEND Radiology Radiation Oncology
DX: Z85.46 Personal history of malignant neoplasm of prostate (principal)
CPT/HCPCS: 99212

== ENCOUNTER 2019-01-28 09:22 | Emergency (ER) | payer MEDICARE, MEDICAID ==
[2014-01-29 08:22] VITALS: Wt 98.0 kg
[~2019-01-28 09:22] MED LIST changes: +BREX0.5T PO
[2019-01-28 09:26] VITALS: BP 149/87
[2019-01-28] MEDS ORDERED: NORT50CA40 PO (09:29)
[2019-01-28] MEDS ORDERED: LIT150 PO (09:29)
--- NOTE | 2019-01-28 09:36 | ER Report ---
History and Physical Time Seen By MD: 09:34 Hx. of Stated Complaint: UNABLE TO REMOVE PENILE PIERCING. HPI/ROS Replaced smaller penis ring with larger one. Does not like how it feels. Now can not get the screw off to remove it. Has been trying for days without success. No urinary problems. Remainder of the 14 system rev: Yes Allergies: Coded Allergies: codeine (Verified Allergy, Severe, STOPPED BREATHING , 05/12/18) milk (Verified Allergy, Intermediate, DIARRHEA, 05/12/18) tolerates yogurt and cheese diazepam (Verified Allergy, Mild, HYPER, 05/12/18) morphine (Verified Allergy, Mild, ANAPHALAXIS, 05/12/18) tramadol (Verified Allergy, Mild, VISUAL DISTURBANCE, 05/12/18) prednisone (Verified Allergy, Unknown, DELUSIONS, 05/12/18) "STERIOD INDUCED TY" ciprofloxacin (Verified Adverse Reaction, Unknown, 05/12/18) clarithromycin (Verified Adverse Reaction, Unknown, 05/12/18) Uncoded Allergies: STERIODS (Allergy, Intermediate, STERIOD INDUCED TY , 05/12/18) Home Meds Reported Medications [place] Carbonate (LITHIUM CARBONATE) 150 Mg Capsule, 150 MG PO HS, CAPSULE 01/28/19 Nortriptyline Hcl (NORTRIPTYLINE HCL) 50 Mg Capsule, 50 MG PO HS, CAPSULE 01/28/19 Icosapent Ethyl (VASCEPA) 1 Gm Capsule, 2 GM PO BID, CAPSULE 05/12/18 Cyanocobalamin (Vitamin B-12) (VITAMIN B-12) 1,000 Mcg/1 Ml Drops, 6000 MCG PO 3XW 12/07/17 Fenofibrate Nanocrystallized (FENOFIBRATE) 145 Mg Tablet, 145 MG PO QDAY 12/07/17 Immune Globulin,Gamma(Igg) (HIZENTRA) 4 Gm/20 Ml Vial, 50 GM SQ QWEEK, VIAL 09/06/14 Cholecalciferol (Vitamin D3) (VITAMIN D) 5,000 Unit Tablet, 4000 UNIT PO QDAY 01/26/14 Levothyroxine Sodium (LEVOTHYROXINE SODIUM) 50 Mcg Tablet, 50 MCG PO QDAY 12/15/13 Discontinued Reported Medications Brexpiprazole (Rexulti) 0.5 Mg Tablet, 0.05 MG PO DAILY 12/26/18 [place] Carbonate (LITHOBID) 300 Mg Tablet.er, 900 MG PO QHS 09/19/17 Discontinued Scripts Sulfamethoxazole/Trimet 800-160 Mg Tab (BACTRIM DS TABLET) 1 Each Tablet, 1 TAB PO Q12H for 21 Days, #42 TAB Prov:CHRISTIN KINNEY JR, MD 12/15/18 Reviewed Nurses Notes: Yes Old Medical Records Reviewed: Yes Hx Smoking: No Smoking Status: Never Smoker Exposure to Second Hand Smoke?: Yes Hx Substance Use Disorder: No (MARIJUANA) Hx Alcohol Use: Yes Constitutional Vital Sign - Last 24 Hours 01/28/19 09:26 Temp 98.0 Pulse 62 Resp 20 B/P (MAP) 149/87 Pulse Ox 96 Physical Exam General Appearance: The patient is alert, has no immediate need for airway protection and no current signs of toxicity. : Large penile ring in place. Ring is 1cm in thickness and 3 cm in diameter. Skin: No rashes or lesions. No erythema. Medical Decision Making ED Course/Re-evaluation ED Course Paramedics called to bring bolt cutters. With associate professor of theology assistance, able to use a wrench to dislodge the screw of the ring, and remove the ring. No complications. No evidence of infection. Decision to Disposition Date: Jan 28, 2019 Decision to Disposition Time: 10:39 Depart Departure Latest Vital Signs Vital Signs Date Time Temp Pulse Resp B/P (MAP) Pulse Ox O2 Delivery O2 Flow Rate FiO2 01/28/19 09:26 98.0 62 20 149/87 96 Impression: Primary Impression: Accident caused by cutting and piercing instrument or object Condition: Improved Disposition: HOME OR SELF-CARE Referrals: CARRIE WREN (PCP) Additional Instructions: DO NOT REPLACE PIERCING. WATCH FOR SIGNS OF INFECTION. KEEP AREA CLEAN AND DRY Problem Qualifiers Primary Impression: Accident caused by cutting and piercing instrument or object Encounter type: initial encounter Qualified Codes: W26.9XXA - Contact with unspecified sharp object(s), initial encounter LAURENCE MOYA MD Jan 28, 2019 09:36
== END 2019-01-28 10:45 | disposition home or self-care (01) ==
LOC: ER 09:42
DX: T19.4XXA Foreign body in penis, initial encounter (principal); W45.8XXA Other foreign body or object entering through skin, initial encounter; Z79.899 Other long term (current) drug therapy
CPT/HCPCS: 99281

== ENCOUNTER → 2019-03-14 | Outpatient (CLI) | payer MEDICARE, MEDICAID ==
[2014-01-29 08:22] VITALS: BMI 31.3
[~2019-03-14] MED LIST changes: +BREX0.25; +LIT150 PO
== END ==
LOC: LAB 15:28
PROVIDERS: ATTEND Otolaryngology
DX: J32.0 Chronic maxillary sinusitis (principal)
CPT/HCPCS: 87071; 87077; 87186